=== PATIENT | female | born 1945 | race Caucasian/White ===

== ENCOUNTER 2017-10-13 13:50 | Observation (INO) | payer MEDICARE ==
--- NOTE | 2017-10-13 15:38 | RAD ---
TWO VIEWS CHEST: Date: 10-13-17 Comparison: 05-03-17 History: Left sided chest pain and cough. FINDINGS: There is a questionable small nodular density in the left lung base just lateral to the left heart liam rder. No pneumothorax or pleural fluid is seen. There is no lobar consolidation or alveolar edema. Brenna ngs are hyperinflated with increased linear interstitial density. This suggests underlying emphysemat ous change. IMPRESSION: 1. Questionable nodular density lateral to the left heart border. Recommend CT of the chest on a non- emergent basis to exclude an underlying pulmonary nodule/mass. 2. Emphysema. 3. Nurse practitioner Florentino, made aware at 3:30 p.m. 10-13-17. Code LN POS: HUGO
[2017-10-13 15:59] LABS: #Eosinphils 0.2 thou/uL (0.0-0.7); #Monocytes 0.5 thou/uL (0.11-0.59); #Neutrophils 5.2 thou/uL (1.40-6.50); %Basophils 0.6 % (0.0-1.0); %Eosinophils 2.9 % (0.0-10.0); %Monocytes 6.3 % (0.0-10.0); Hematocrit 38.6 % (36.0-47.0); Mean Platelet Volume 6.8 fL (7.4-10.4); Red Blood Cell (RBC) Count 4.03 mill/uL (4.20-5.40)
[2017-10-13 16:21] LABS: ALT (SGPT) 21 U/L (8-55); AST (SGOT) 20 U/L (5-34); Alkaline Phosphatase 132 U/L (40-150); Anion Gap 15 mmol/L (10-20); BUN (Urea Nitrogen) 18 mg/dL (9.8-20.1); Bilirubin, Total 0.3 mg/dL (0.2-1.2); CK (CPK) 58 U/L (29-168); Calc. Creatinine Clearance 0 mL/min (70-130); Calcium 9.4 mg/dL (7.8-10.44); Carbon Dioxide 26 mmol/L (23-31); Chloride 100 mmol/L (98-107); Estimated GFR-MDRD 54; Lipase 11 U/L (8-78); Protein, Total 7.7 g/dL (6.0-8.3)
[2017-10-13 16:23] LABS: Troponin I 0.031 ng/mL (< 0.028)
[2017-10-13] MEDS ORDERED: Nitroglycerin 2% Ointment 1 INCH/1 GM Packet ONE (17:39)
[2017-10-13] MEDS ORDERED: Morphine 4 MG/ML VIAL ONE (18:09)
[2017-10-13] MEDS ORDERED: Sodium Chloride 0.9% 1,000 ML IV SCH ×2 (19:40→23:00)
[2017-10-13] MEDS ORDERED: Ondansetron HCl/PF 4 MG/2 ML Vial IVP PRN (19:40)
[2017-10-13] MEDS ORDERED: Ondansetron ODT 4 MG TAB SL PRN (19:40)
[2017-10-13 19:50] LABS: Troponin I 0.032 ng/mL (< 0.028)
[2017-10-13 20:29] VITALS: BMI 27.7
[2017-10-13 22:41] LABS: Troponin I 0.024 ng/mL (< 0.028)
[2017-10-13] MEDS ORDERED: PROVENTIL INHALER 6.7 G (200 INHALATIONS) INH PRN (22:57)
[2017-10-13] MEDS ORDERED: Guaifenesin DM 100-10/5 ML UDCUP PO PRN (22:57)
[2017-10-13] MEDS ORDERED: Acetaminophen 325 MG TAB PO PRN (22:57)
[2017-10-13] MEDS ORDERED: Senokot 8.6 MG TAB PO PRN (22:57)
[2017-10-13 23:49] VITALS: TEMP 98.3
[2017-10-13] MEDS: Enoxaparin Sodium 80 MG/0.8 ML SYRINGE SC SCH (23:51)
[2017-10-14] MEDS: Fioricet 325/50/40 mg Tablet PO PRN ×3 (00:14→15:42)
[2017-10-14 04:27] LABS: #Basophils 0.1 thou/uL (0.0-0.2); #Eosinphils 0.2 thou/uL (0.0-0.7); #Lymphocytes 2.1 thou/uL (1.20-3.40); #Monocytes 0.5 thou/uL (0.11-0.59); %Basophils 0.8 % (0.0-1.0); %Eosinophils 3.4 % (0.0-10.0); %Lymphocytes 30.5 % (21.0-51.0); %Monocytes 7.4 % (0.0-10.0); Hematocrit 35.9 % (36.0-47.0); Mean Platelet Volume 6.7 fL (7.4-10.4); Red Blood Cell (RBC) Count 3.75 mill/uL (4.20-5.40); White Blood Cell (WBC) Count 6.8 thou/uL (4.8-10.8)
--- NOTE | 2017-10-14 04:27 | HP ---
REASON FOR ADMISSION: Chest pain. HISTORY OF PRESENT ILLNESS: The patient gives history of off and on left upper quadrant pain, which has been there from last 1 year. This got worse and started to extend up towards her left lower rib cage from yesterday morning. She tried taking her usual pain medications, which did not seem to work. Has some dry cough, but no expectoration. The patient took her flu shot 2 weeks back. She has been trying to get to a pain specialist for chronic pain, but has been unable to find one. She has had cardiac catheterization done 2 years back at [facility] where she was found to have had a 30% and a 10% lesion in her coronary vessels. Her troponin is 0.03 on arrival. Currently, she is chest pain free. PAST MEDICAL AND SURGICAL HISTORY: Hypertension, chronic obstructive pulmonary disease, dyslipidemia, chronic pain syndrome, fibromyalgia, hysterectomy, appendectomy. CURRENT MEDICATIONS: The patient is on a combination of pentazocine with naloxone 2 tablets three times daily, which she has been taking for the last 20 years or so. Albuterol inhaler every 6 hourly p.r.n., albuterol nebulizer every 6 hourly p.r.n., Aggrenox 1 capsule twice daily, Neurontin 600 mg 3 times daily, Prozac 80 mg p.o. at bedtime, Prinivil 10 mg twice daily, and Pravachol 40 mg p.o. daily. ALLERGIES: Allergic to CODEINE, PENICILLIN, and SULFA. NSAIDS make her get severe nausea and causes GI upset. She is also allergic to MACROLIDES. PERSONAL HISTORY: Quit smoking two years ago, prior to that has smoked for nearly 50 years, one pack a day. Does not abuse alcohol or drugs. FAMILY HISTORY: Mother at the age of 93 years. She has had history of CVA. Father of brain tumor and its complications at the age of 82 years, he has also had coronary artery disease. REVIEW OF SYSTEMS: The following complete review of systems was negative, unless otherwise mentioned in the HPI or below: Constitutional: Weight loss or gain, ability to conduct usual activities. Skin: Rash, itching. Eyes: Double vision, pain. ENT/Mouth: Nose bleeding, neck stiffness, pain, tenderness. Cardiovascular: Palpitations, dyspnea on exertion, orthopnea. Respiratory: Shortness of breath, wheezing, cough, hemoptysis, fever or night sweats. Gastrointestinal: Poor appetite, abdominal pain, heartburn, nausea, vomiting, constipation, or diarrhea. Genitourinary: Urgency, frequency, dysuria, nocturia. Musculoskeletal: Pain, swelling. Neurologic/Psychiatric: Anxiety, depression. Allergy/Immunologic: Skin rash, bleeding tendency. Otherwise negative except as stated per HPI. PHYSICAL EXAMINATION: GENERAL: The patient is a 72-year-old female who is currently not in any acute distress. VITAL SIGNS: Blood pressure 166/94 on arrival, pulse 90 per minute, respiratory rate 18 per minute, temperature 98.1 degrees Fahrenheit, saturating 94% on room air. NECK: Supple, no elevated JVD. HEENT: Eyes, extraocular muscles intact. Pupils are reacting to light. Oral cavity, mucous membranes are moist. No exudates or congestion. CARDIOVASCULAR SYSTEM: S1 and S2 heard. Regular rhythm. RESPIRATORY SYSTEM: Air entry 1+ bilateral. Scattered rhonchi plus no rales or wheezes. ABDOMEN: Soft, bowel sounds heard. No tenderness, rigidity, or guarding. EXTREMITIES: No peripheral edema or calf tenderness. VASCULAR SYSTEM: Peripheral pulses 1+ bilateral. No ischemic ulcerations or gangrene. CENTRAL NERVOUS SYSTEM: No gross focal deficits seen. Patient is alert, awake , oriented x3. PSYCHIATRIC SYSTEM: The patient's mood is euthymic. No hallucinations or delusions. LABORATORY AND X-RAY FINDINGS: EKG done shows normal sinus rhythm at 90 beats per minute. There is T inversion seen in V3, V4, V5, and V6. Troponin I is 0.03 x2. BNP 167, albumin is 3.7. Chest x-ray done shows questionable nodular density lateral to the left heart border. The CT chest has been recommended by Radiology. The signs of emphysema seen. BUN 18, creatinine 1.0. Liver enzymes within normal limits. Electrolytes are stable. White count of 8, H and H 12 and 38, platelet count 321. MCV is 95 with 65% neutrophils, BUN 18, creatinine 1.0. CLINICAL IMPRESSION AND PLAN: The patient will be under observation on telemetry for chest pain, rule out acute coronary syndrome with indeterminate troponin. She has had mild coronary artery disease on prior cardiac catheterization done 2 years ago. It is unclear if her troponin leak is due to demand ischemia from her chronic left upper quadrant pain or progressive coronary artery disease. In view of this, she will be kept n.p.o. and a Cardiology consultation with Dr. Harris who is cap and hat production supervisor, will be requested. She will be gently hydrated. We will also place her on Lovenox 70 mg subcutaneously every 12 hourly in view of indeterminate troponin along with nitroglycerin half inch every 8 hourly transdermal. She will be on a full dose aspirin, Lipitor, continue on Prozac, Neurontin, and Talwin/naloxone combination. Echo with 2D Doppler for LV function will be obtained as well. We will continue to closely monitor her for any hemodynamic compromise. Please note, I have seen and examined the patient on 10/13/2017. JORYD
[2017-10-14 04:51] LABS: Anion Gap 14 mmol/L (10-20); BUN (Urea Nitrogen) 18 mg/dL (9.8-20.1); Calc. Creatinine Clearance 58 mL/min (70-130); Calcium 9.1 mg/dL (7.8-10.44); Carbon Dioxide 28 mmol/L (23-31); Chloride 101 mmol/L (98-107); Cholesterol 204 mg/dl (< 200 Desired); Estimated GFR-MDRD 54; LDL Cholesterol, Calculated 125 mg/dL
[2017-10-14] MEDS: Nitroglycerin 2% Ointment 1 INCH/1 GM Packet TOP SCH ×2 (05:25→15:28)
[2017-10-14] MEDS ORDERED: Aspirin 325 MG TAB PO SCH (08:00)
[2017-10-14] MEDS ORDERED: Famotidine 20 MG TAB PO SCH (09:00)
[2017-10-14] MEDS ORDERED: Atorvastatin Calcium 10 MG TAB PO SCH (09:00)
[2017-10-14] MEDS ORDERED: Gabapentin 300 MG CAP PO SCH (09:00)
[2017-10-14] MEDS: Metoprolol Tartrate 25 MG TAB PO SCH ×2 (09:27→11:30)
[2017-10-14] MEDS: Pentazocine HCl/Naloxone HCl 50/0.5 MG TAB PO SCH ×2 (09:27→15:41)
[2017-10-14] MEDS: Enoxaparin Sodium 80 MG/0.8 ML SYRINGE SC SCH (11:30)
--- NOTE | 2017-10-14 11:54 | CON ---
DATE OF CONSULTATION: 10/14/2017 REASON FOR CONSULTATION: Borderline troponin. PRIMARY REFERRING PROVIDER: Dr. Diaz. HISTORY OF PRESENT ILLNESS: Ms. Garcia is a 72-year-old woman who recently presented with an upper left quadrant pain. The pain is reproducible. There is pain to palpation. 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 Gary Duggan and underwent coronary angiography one year ago. She was fou nd to have mild coronary artery disease. No chest pain or pressure noted. No other associated ameli orating or exacerbating factors present. PAST MEDICAL HISTORY: Hypertension, COPD, hyperlipidemia, fibromyalgia. PAST SURGICAL HISTORY: Hysterectomy, appendectomy. CURRENT MEDICATIONS: Include albuterol, Aggrenox, Prinivil, Prozac, Neurontin, Pravachol, albuterol. ALLERGIES: CODEINE, PENICILLIN, and SULFA. SOCIAL HISTORY: No current tobacco or alcohol use. REVIEW OF SYSTEMS: Ten-point review of systems reviewed and is as above, otherwise negative. PHYSICAL EXAMINATION: VITAL SIGNS: 159/80, pulse 90, respirations 20. GENERAL: Patient is a pleasant female who is in no acute distress. The patient appears her stated a ge. NEUROLOGIC: The patient is alert and oriented times 3 with no focal neurologic deficits. HEENT: Sclerae without icterus. Mouth has moist mucous membranes with normal pallor. NECK: No JVD. Carotid upstroke brisk. No bruits bilaterally. LUNGS: Clear to auscultation with unlabored respirations. BACK: No scoliosis or kyphosis. CARDIAC: Regular rate and rhythm with normal S1 and S2. No S3 or S4 noted. No significant rubs, mu rmurs, thrills, or gallops noted throughout the precordium. PMI is not displaced. There is no bessie ternal heave. ABDOMEN: Pain to palpation noted in the left upper quadrant. EXTREMITIES: 2+ femoral and 2+ dorsalis pedis pulses. No cyanosis, clubbing, or edema. SKIN: No gross abnormalities. PERTINENT LABORATORY DATA: Hemoglobin 11.7. Peak troponin 0.032, which is felt to be within lower l imits in the indeterminate range. BNP of 167. IMPRESSION: 1. Abdominal pain. 2. Mild coronary artery disease. RECOMMENDATIONS: Ms. Garcia does have reproducible pain noted to the left upper quadrant. Etiology is unknown. Workup in progress per hospitalist. From a CV standpoint, given that she had a mild co ronary artery disease with angio performed within the last year, would not be compelled to proceed wi th any further cardiac recommendations. Otherwise, from my standpoint, we will sign off. Please re- consult if needed.
[2017-10-14 15:25] VITALS: BP 158/79
--- NOTE | 2017-10-14 15:28 | CT ---
CT THORAX WITH IV CONTRAST: Date: 10/14/17 HISTORY: Left lung nodule. Abnormal chest x-ray. COMPARISON: Chest x-ray on 10/13/17. FINDINGS: There is a tiny, 5.0 mm, pulmonary nodule seen in the anterior aspect of the right upper lobe with qu estionable faint less than 4.0 mm pulmonary nodule within the right middle lobe as well. An 8.0 mm noncalcified pleural based pulmonary nodule is seen at the medial right lung base, as well as a pleural based pulmonary nodule superior segment of right lower lobe which measures 7.0 mm. There is also an additional tiny pulmonary nodule measuring less than 5.0 mm within the superior segment o f the right lower lobe near the region of the fissure. There is a linear and slight nodular density seen in the region of the lingula, which is adjacent to the left cardiac border, but this more of an appearance of an area of mild scarring as well as pleura l thickening, and no discrete pulmonary nodule is seen in this region. This does correspond to the ch est x-ray abnormality. There is a tiny pleural based nodular density right lung base measuring approximately 6.0 mm. No master tional pulmonary nodule is seen on the left. Vascular calcification seen in the thoracic aorta and involving the coronary arteries. There is no evidence of lymphadenopathy. There is a fat density mass-like structure measuring 2.7 cm between the right atrial appendage and th e left atrium likely related to a small lipoma. Subcentimeter, too small to characterize, hypodense lesions seen in the superior pole of left kidney and there is mild cortical scarring involving the superior pole of the left kidney. IMPRESSION: 1. Scattered pulmonary nodules within the right upper lobe and right lower lobe with largest pulmona ry nodules in the right lower lobe. Follow-up CT thorax in 4 months is recommended. 2. Findings most likely related to area of mild pleural and parenchymal scarring in the lingula whic h correlates with finding on chest x-ray. POS: HUGO
--- NOTE | 2017-10-14 16:21 | DIS ---
PRIMARY CARE PHYSICIAN: Listed as Dr. Vega. DATE OF ADMISSION: 10/13/2017 DATE OF DISCHARGE: 10/14/2017 DISCHARGE DIAGNOSES: 1. Noncardiac chest pain. 2. Chronic headaches. 3. Hypertension, essential. 4. Chronic pain syndrome. 5. Hyperlipidemia. 6. Chronic obstructive pulmonary disease. 7. Fibromyalgia. CONSULTATIONS: Cardiology, Dr. Armani Harris. PROCEDURES: 1. Echocardiogram 10/13/2017 that showed ejection fraction of 60%, no regional wall motion abnormali ties, mild MR, mildly thickened trileaflet aortic valve with decreased excursion and mild TR. 2. A CT scan of the chest that showed several small subcentimeter pleural based nodules consistent w ith scarring and recommended a 4-month followup. HOSPITAL COURSE: Ms. Garcia is a 72-year-old white female with the above problems who presented in the emergency department on 10/13/2017 for evaluation of pain in her chest. She states she has been having chest pain off and on for the last year, got worse and seemed to extend towards her low ribcag e two days ago. Took an oral pain medicine did not work. She has had a chronic dry cough without sp utum production. She presented to the emergency department for evaluation, initial workup showed a t roponin is a 0.031 and we were called for admission. The patient was seen and examined, and placed in observation by Dr. Rubio. Serial cardiac biomarkers were obtained that showed her troponin to go from 0.031 to 0.032 to 0.024. Her chest pain is completely resolved. She was seen by Cardiology and echocardiogram was obtained. Echocardiogram was largely unremarkable, Cardiology felt this was not related to her heart and recom mended follow up with her regular entry level java developer. Her heart cath 1-2 years ago showed minimal coronary artery disease. A chest x-ray on admission did show a nodule present along the left heart border, so CT scan of the c hest was obtained to make sure this was the cause of her discomfort. CT scan showed several subcenti meter nodules present in the right middle and right upper lung. She also had a pleural based nodule present in the left lingular area that would likely represented, but we will see on the chest x-ray. Radiology recommended a 4-month followup. PHYSICAL EXAMINATION: The patient was seen and examined on the day of discharge. Discharge plan and disposition were discussed with the patient face to face at the bedside in the presence of her child sherwin. DISCHARGE MEDICATIONS: Resuming home medications without changes. FOLLOWUP APPOINTMENTS: 1. Primary care physician within a week. 2. Mobility Scooter Repairer, the next available. The patient was instructed to stop smoking. She was instructed to follow heart healthy diet and acti vity per cardiopulmonary limitations. She is to return to the emergency department or call her [facility] doctor if she has any further issues.
[2017-10-14] MEDS ORDERED: ISOVUE-370 76%-LOCM 1 ML ONE (16:46)
[2017-10-14] MEDS ORDERED: FLUoxetine HCl 20 MG CAP PO SCH (21:00)
== END 2017-10-14 16:06 | disposition home or self-care (01) ==
LOC: ERS 13:50 → 2SW 18:48
PROVIDERS: ADMIT Internal Medicine; ATTEND Internal Medicine
DX: R07.89 Other chest pain (principal); R51 Headache; I10 Essential (primary) hypertension; G89.29 Other chronic pain; E78.5 Hyperlipidemia, unspecified; M79.7 Fibromyalgia; J44.9 Chronic obstructive pulmonary disease, unspecified; Z88.5 Allergy status to narcotic agent; Z88.0 Allergy status to penicillin; Z88.2 Allergy status to sulfonamides; Z88.6 Allergy status to analgesic agent; Z88.8 Allergy status to other drugs, medicaments and biological substances; Z79.899 Other long term (current) drug therapy; Z87.891 Personal history of nicotine dependence; Z82.49 Family history of ischemic heart disease and other diseases of the circulatory system
CPT/HCPCS: 71020; 71260; 80048; 80053; 80061; 82550; 82553; 83690; 83880; 84484 ×2; 85025 ×2; 93005; 93306; 94760; 96361; 96372 ×2; 96374; 97139; 99285; 99406; G0378; 36415; J1650; J2270

== ENCOUNTER 2018-02-10 08:11 | Observation (INO) | payer MEDICARE ==
[2018-02-10 08:42] LABS: #Lymphocytes 1.4 thou/uL (1.20-3.40); #Monocytes 0.5 thou/uL (0.11-0.59); #Neutrophils 8.6 thou/uL (1.40-6.50); %Basophils 0.3 % (0.0-1.0); %Eosinophils 0.2 % (0.0-10.0); %Lymphocytes 13.3 % (21.0-51.0); %Monocytes 4.8 % (0.0-10.0); %Neutrophils 81.5 % (42.0-75.0); Hemoglobin 15.4 g/dL (12.0-16.0); Mean Corpuscular HGB CONC 33.9 g/dL (32.0-36.0); Mean Corpuscular Hemoglobin 31.8 pg (27.0-31.0); Mean Platelet Volume 7.2 fL (7.4-10.4); Platelet Count 289 thou/uL (130-400); Red Blood Cell (RBC) Count 4.84 mill/uL (4.20-5.40); White Blood Cell (WBC) Count 10.5 thou/uL (4.8-10.8)
[2018-02-10 09:06] LABS: ALT (SGPT) 12 U/L (8-55); AST (SGOT) 17 U/L (5-34); Albumin 4.8 g/dL (3.4-4.8); Alkaline Phosphatase 135 U/L (40-150); Anion Gap 17 mmol/L (10-20); BUN (Urea Nitrogen) 19 mg/dL (9.8-20.1); Bilirubin, Total 0.4 mg/dL (0.2-1.2); Calc. Creatinine Clearance 0 mL/min (70-130); Calcium 10.2 mg/dL (7.8-10.44); Carbon Dioxide 26 mmol/L (23-31); Chloride 94 mmol/L (98-107); Estimated GFR-MDRD 54; Globulin 4.1 g/dL (2.4-3.5); Glucose 125 mg/dL (80-115); Lipase 31 U/L (8-78); Potassium 3.3 mmol/L (3.5-5.1); Protein, Total 8.9 g/dL (6.0-8.3); Sodium 134 mmol/L (136-145)
[2018-02-10 09:53] LABS: CKMB 1.8 ng/mL (0-6.6); Troponin I 0.041 ng/mL (< 0.028)
[2018-02-10] MEDS ORDERED: Ondansetron HCl/PF 4 MG/2 ML Vial ONE (10:09)
[2018-02-10] MEDS ORDERED: hydrALAZINE 20 MG/ML VIAL ONE (10:26)
[2018-02-10] MEDS ORDERED: Bacitracin Zinc 1 Packet ONE (10:28)
[2018-02-10] MEDS ORDERED: cloNIDine 0.1 MG TAB ONE (11:30)
[2018-02-10] MEDS ORDERED: Promethazine HCl 25 MG/ML VIAL ONE (11:43)
[2018-02-10 12:22] LABS: CKMB 1.8 ng/mL (0-6.6); Troponin I 0.047 ng/mL (< 0.028)
[2018-02-10] MEDS ORDERED: Metoprolol Tartrate 5 MG/5 ML VIAL ONE (12:37)
[2018-02-10] MEDS ORDERED: Bisacodyl 5 MG TAB PO PRN (14:10)
[2018-02-10] MEDS ORDERED: Acetaminophen 325 MG TAB PO PRN (14:10)
[2018-02-10] MEDS ORDERED: Ondansetron HCl/PF 4 MG/2 ML Vial IVP PRN (14:10)
[2018-02-10] MEDS ORDERED: Acetaminophen 650 MG Suppository PR PRN (14:10)
[2018-02-10] MEDS ORDERED: Potassium Chloride 20 MEQ TAB PO SCH (14:15)
--- NOTE | 2018-02-10 15:00 | HP ---
PRIMARY CARE PHYSICIAN: Prakash Ken M.D. CHIEF COMPLAINT: Nausea and vomiting. HISTORY OF PRESENT ILLNESS: Ms. Garcia is a pleasant 72-year-old lady who was seen at [facility] on 02/10/2018. She reports that she developed nausea and vomiting yesterday morning. She reports vomiting 6 times y esterday. She denies any chest pain. She denies any diarrhea. She denies any abdominal pain. She reports having a headache, reports that it is similar to her migraine headache. She denies eating ou tside her house. According to her son, chicken that she may have eaten 2 days ago may have been unde rcooked. However, she denies this and reports that the chicken was well cooked. She lives with her son. She took some Phenergan, but without relief. She therefore came to the emergency room. REVIEW OF SYSTEMS: The following complete review of systems was negative, unless otherwise mentioned in the HPI or below: Constitutional: Weight loss or gain, ability to conduct usual activities. Skin: Rash, itching. Eyes: Double vision, pain. ENT/Mouth: Nose bleeding, neck stiffness, pain, tenderness. Cardiovascular: Palpitations, dyspnea on exertion, orthopnea. Respiratory: Shortness of breath, wheezing, cough, hemoptysis, fever or night sweats. Gastrointestinal: Poor appetite, abdominal pain, heartburn, nausea, vomiting, constipation, or diarr hea. Genitourinary: Urgency, frequency, dysuria, nocturia. Musculoskeletal: Pain, swelling. Neurologic/Psychiatric: Anxiety, depression. Allergy/Immunologic: Skin rash, bleeding tendency. PAST MEDICAL HISTORY: Significant for hypertension, chronic obstructive pulmonary disease, dyslipide umu, chronic pain syndrome and fibromyalgia. PAST SURGICAL HISTORY: Hysterectomy and appendectomy. PSYCHIATRIC HISTORY: Depression and anxiety. SOCIAL HISTORY: Patient smokes electronic cigarettes. She denies alcohol use or recreational drug u se. FAMILY HISTORY: Significant for cerebrovascular accident in her mother and coronary artery disease a nd brain tumor in her father. ALLERGIES: CODEINE, PENICILLIN, SULFA, NONSTEROIDAL ANTI-INFLAMMATORY DRUGS and MACROLIDES. CURRENT MEDICATIONS: Talwin NX 50/0.5 mg every 6 hours, gabapentin 600 mg 3 times a day, meclizine 2 5 mg as needed, pravastatin 40 mg daily, Compazine 10 mg every 6 hours as needed, lisinopril 10 mg 2 times a day, Aggrenox 1 capsule daily, Besivance eye drops. CODE STATUS: I discussed her code status. She is FULL CODE. She reports that her children will be her decision makers. PHYSICAL EXAMINATION: GENERAL: On examination, Ms. Garcia is awake and alert, not in acute distress. VITAL SIGNS: Blood pressure is 143/85, pulse is 86, she is breathing at rate of 16, and saturating 9 8% on room air. She is afebrile. She had blood pressure of 209/113 earlier in the emergency room. EYES: No scleral icterus. No conjunctival pallor. ENT: Dry mucosal membranes, no oropharyngeal erythema or exudates. NECK: Supple, nontender, normal range of movement. Trachea is midline. RESPIRATORY: Accessory muscles of breathing are not active. Chest wall movements are symmetric bila terally. LUNGS: Clear to auscultation without wheeze, rhonchi or crepitations. CARDIOVASCULAR: S1 and S2 are heard, regular. LUNGS: Peripheral pulses palpable. No carotid bruit, no pericardial rub. ABDOMEN: Soft and nontender, bowel sounds are heard, no hepatomegaly, no splenomegaly. NEUROLOGIC: Cranial nerves II-XII intact. Deep tendon reflexes are 2+. MUSCULOSKELETAL: Power is 5/5 in all 4 extremities. SKIN: No rashes or subcutaneous nodules. LYMPHATIC: No cervical lymphadenopathy. PSYCHIATRIC: Normal mood, normal affect. The patient is oriented to person, place, and time. IMAGING DATA AND LABORATORY DATA: Ms. Garcia's labs and investigations were reviewed. She had an e lectrocardiogram, which showed normal sinus rhythm. She had a prolonged corrected QT interval of 505 milliseconds. She has not had any imaging yet. She has normal white count, normal hemoglobin, norm al platelet count, decreased sodium of 134, decreased potassium of 3.3, normal creatinine and indeter minate troponin I of 0.047. Liver function tests are unremarkable. Creatinine is normal. ASSESSMENT AND PLAN: Ms. Garcia is a pleasant 72-year-old lady who was seen at [facility] on 02/10/2018. Her problem list includes: 1. Nausea and vomiting: This appears to have improved. She will be admitted to the hospital on obs ervation status for further management including antiemetics. We will start her on clear fluid diet and advance as tolerated. 2. Indeterminate troponin I: Etiology is unclear. Patient was admitted at this hospital in 10/2017 for chest pain. At that time, the plan was for patient to follow up with her injector assembler as outpat ient, since she had a coronary angiography in 2016. She reports that she has followed up and no furt her interventions were needed. We will trend her troponins. If stable, she will be advised to follo w up with her injector assembler. We will keep patient n.p.o. after midnight in case she needs stress test during this hospitalization. 3. Hyponatremia: Mild follow electrolytes. 4. Hypokalemia: Replace. 5. Dehydration: The patient is clinically dehydrated. We will provide intravenous fluids. 6. Hypertensive urgency: Monitor vital signs, titrate antihypertensives as needed, add p.r.n. antih ypertensives. 7. Chronic pain: Resume home medications. Many thanks for allowing me to participate in your patient's care. Please feel free to contact me wi th any questions or concerns. LEVEL OF RISK: Moderate. LEVEL OF COMPLEXITY: Moderate.
[2018-02-10 15:30] VITALS: BMI 25.3
[2018-02-10] MEDS: Sodium Chloride 0.9% 1,000 ML IV SCH (15:46)
[2018-02-10] MEDS ORDERED: Gabapentin 300 MG CAP PO PRN (16:51)
[2018-02-10] MEDS ORDERED: PROVENTIL INHALER 6.7 G (200 INHALATIONS) INH PRN (16:51)
[2018-02-10] MEDS ORDERED: Albuterol Sulfate 2.5 mg/3 ml Neb NEB PRN (16:51)
[2018-02-10] MEDS ORDERED: Fiorinal 325/50/40 mg Tablet PO PRN (17:01)
[2018-02-10] MEDS ORDERED: Prochlorperazine Maleate 5 MG TAB PO PRN (17:05)
[2018-02-10 18:12] LABS: Troponin I 0.031 ng/mL (< 0.028)
--- NOTE | 2018-02-10 19:08 | RAD ---
RADIOGRAPH CHEST 2 VIEWS: 02/10/18 HISTORY: 72-year-old female for followup of infiltrate. FINDINGS: The thoracic aorta is tortuous and ectatic. There is no evidence of air space density, pneumothorax, or pulmonary edema. There is no cardiomegaly or pleural effusion. There is a small triangular densi ty in the lingula, silhouetting a small portion of the cardiac apex, which represents pulmonary scar, as demonstrated on the CT of 10/14/17, and is unchanged since 10/13/17 plain radiograph. IMPRESSION: 1) No acute cardiopulmonary findings. 2) Ectasia of thoracic aorta. bib [] POS: HUGO
[2018-02-10] MEDS: Meclizine HCl 25 MG TAB PO SCH (20:27)
[2018-02-10] MEDS: valACYclovir 500 MG TAB PO SCH (20:27)
[2018-02-10] MEDS: Dicyclomine 10 MG CAP PO SCH (20:27)
[2018-02-10] MEDS: Pentazocine HCl/Naloxone HCl 50/0.5 MG TAB PO SCH (20:27)
[2018-02-10] MEDS ORDERED: Pravastatin Sodium 40 MG TAB PO SCH (21:00)
[2018-02-10 21:34] LABS: CKMB 2.1 ng/mL (0-6.6); Troponin I 0.019 ng/mL (< 0.028)
[2018-02-11 04:34] LABS: #Eosinphils 0.1 thou/uL (0.0-0.7); #Lymphocytes 2.2 thou/uL (1.20-3.40); #Monocytes 0.5 thou/uL (0.11-0.59); #Neutrophils 5.1 thou/uL (1.40-6.50); %Basophils 0.2 % (0.0-1.0); %Eosinophils 0.7 % (0.0-10.0); %Lymphocytes 28.1 % (21.0-51.0); %Monocytes 5.9 % (0.0-10.0); %Neutrophils 65.1 % (42.0-75.0); Hemoglobin 12.1 g/dL (12.0-16.0); Mean Corpuscular HGB CONC 33.7 g/dL (32.0-36.0); Mean Corpuscular Hemoglobin 32.1 pg (27.0-31.0); Mean Corpuscular Volume 95.3 fl (81.0-99.0); Mean Platelet Volume 7.1 fL (7.4-10.4); Platelet Count 227 thou/uL (130-400); Red Blood Cell (RBC) Count 3.78 mill/uL (4.20-5.40); White Blood Cell (WBC) Count 7.9 thou/uL (4.8-10.8)
[2018-02-11 04:37] LABS: Anion Gap 12 mmol/L (10-20); BUN (Urea Nitrogen) 16 mg/dL (9.8-20.1); Calc. Creatinine Clearance 61 mL/min (70-130); Calcium 8.7 mg/dL (7.8-10.44); Carbon Dioxide 25 mmol/L (23-31); Chloride 103 mmol/L (98-107); Estimated GFR-MDRD 61; Glucose 99 mg/dL (80-115); Potassium 3.7 mmol/L (3.5-5.1); Sodium 136 mmol/L (136-145)
[2018-02-11] MEDS: Sodium Chloride 0.9% 1,000 ML IV SCH (05:40)
[2018-02-11 07:17] VITALS: BP 143/78; TEMP 98.4
[2018-02-11] MEDS ORDERED: Enoxaparin Sodium 40 MG/0.4 ML SYRINGE SC SCH (09:00)
[2018-02-11] MEDS ORDERED: Lisinopril 10 MG TAB PO SCH (09:00)
[2018-02-11] MEDS ORDERED: FLUoxetine HCl 20 MG CAP PO SCH (09:00)
[2018-02-11] MEDS ORDERED: Aggrenox 200-25mg CAP PO SCH (09:00)
[2018-02-11] MEDS ORDERED: Clopidogrel Bisulfate 75 MG TAB PO SCH (09:00)
[2018-02-11] MEDS: valACYclovir 500 MG TAB PO SCH (09:18)
[2018-02-11] MEDS: Meclizine HCl 25 MG TAB PO SCH (09:18)
[2018-02-11] MEDS: Dicyclomine 10 MG CAP PO SCH (09:19)
[2018-02-11] MEDS: Pentazocine HCl/Naloxone HCl 50/0.5 MG TAB PO SCH (09:20)
--- NOTE | 2018-02-11 13:11 | DIS ---
DATE OF ADMISSION: 02/10/2018 DATE OF DISCHARGE: 02/11/2018 PRIMARY CARE PHYSICIAN: Prakash Ken M.D. DISCHARGE DIAGNOSES: 1. Nausea and vomiting. 2. Mildly elevated troponin I. CONDITION OF PATIENT AT THE TIME OF DISCHARGE: Stable. I assessed Ms. Garcia on the day of dischar . She denies any chest pain or shortness of breath. She denies any nausea or vomiting. She is to lerating diet well. Vital signs are stable. S1 and S2 are heard, regular. Lungs are clear to auscu ltation bilaterally. DISCHARGE MEDICATIONS: No change was made to her preadmission home medications as dictated on histor y and physical note from 02/10/2018. HOSPITAL COURSE: Ms. Garcia is a pleasant 72-year-old lady who was admitted to [facility] on observation status on 02/10/2018 for nausea and vomiting as well as indeterminate tr oponin I level. She received intravenous fluids. She clinically improved. Her troponin level trend ed down into the normal range. She never had any chest pain during this hospitalization. She is adv ised to follow up with her template cutter as an outpatient. Her nausea and vomiting resolved as well. She was tolerating diet on the day of discharge. On the day of discharge, she has a white count of 7900, hemoglobin 12.1, platelet count 227,000 and a normal Chem-7. Many thanks for allowing me to participate in your patient's care. Please feel free to contact me wi th any questions or concerns. DISCHARGE DESTINATION: Home.
== END 2018-02-11 11:10 | disposition home or self-care (01) ==
LOC: ERS 08:11 → 2SW 13:30
PROVIDERS: ADMIT Internal Medicine; ATTEND Internal Medicine
DX: R11.2 Nausea with vomiting, unspecified (principal); R79.89 Other specified abnormal findings of blood chemistry; G89.4 Chronic pain syndrome; M79.7 Fibromyalgia; I10 Essential (primary) hypertension; J44.9 Chronic obstructive pulmonary disease, unspecified; E78.5 Hyperlipidemia, unspecified; F41.9 Anxiety disorder, unspecified; F32.9 Major depressive disorder, single episode, unspecified; F17.290 Nicotine dependence, other tobacco product, uncomplicated; E86.0 Dehydration; E87.6 Hypokalemia; E87.1 Hypo-osmolality and hyponatremia; I16.0 Hypertensive urgency; Z88.0 Allergy status to penicillin; Z88.5 Allergy status to narcotic agent; Z88.2 Allergy status to sulfonamides; Z88.6 Allergy status to analgesic agent; Z88.8 Allergy status to other drugs, medicaments and biological substances; Z79.02 Long term (current) use of antithrombotics/antiplatelets; Z79.899 Other long term (current) drug therapy
CPT/HCPCS: 71046; 80048; 80053; 82553 ×2; 83690; 84484 ×2; 85025 ×2; 93005; 94640 ×3; 96361 ×3; 96365; 96375; 99285; G0378; 36415; J0360; J1650; J2405; J2550; J7620

== ENCOUNTER 2018-03-13 23:22 | Inpatient (IN) | payer MEDICARE ==
[2018-03-14 00:09] LABS: #Basophils 0.1 thou/uL (0.0-0.2); #Eosinphils 0.2 thou/uL (0.0-0.7); #Lymphocytes 2.5 thou/uL (1.20-3.40); #Monocytes 0.7 thou/uL (0.11-0.59); %Basophils 0.8 % (0.0-1.0); %Eosinophils 2.1 % (0.0-10.0); %Lymphocytes 29.8 % (21.0-51.0); %Monocytes 7.8 % (0.0-10.0); %Neutrophils 59.5 % (42.0-75.0); Mean Corpuscular HGB CONC 33.5 g/dL (32.0-36.0); Mean Corpuscular Hemoglobin 32.3 pg (27.0-31.0); Mean Corpuscular Volume 96.3 fl (81.0-99.0); Mean Platelet Volume 7.2 fL (7.4-10.4); Platelet Count 312 thou/uL (130-400); RBC Distribution Width 12.9 % (11.5-14.5); Red Blood Cell (RBC) Count 3.71 mill/uL (4.20-5.40); White Blood Cell (WBC) Count 8.5 thou/uL (4.8-10.8)
[2018-03-14] MEDS ORDERED: Lidocaine 1% w/Epinephrine 1:100K 20 ML VIAL ONE (00:14)
[2018-03-14 00:20] LABS: INR-International Normal Ratio 0.9; Prothrombin Time 12.6 SEC (12.0-14.7)
[2018-03-14 00:22] LABS: ALT (SGPT) 17 U/L (8-55); AST (SGOT) 17 U/L (5-34); Albumin 4.2 g/dL (3.4-4.8); Alkaline Phosphatase 125 U/L (40-150); Anion Gap 16 mmol/L (10-20); BUN (Urea Nitrogen) 30 mg/dL (9.8-20.1); Bilirubin, Total Less than 0.2 mg/dL (0.2-1.2); Calc. Creatinine Clearance 0 mL/min (70-130); Calcium 9.4 mg/dL (7.8-10.44); Carbon Dioxide 25 mmol/L (23-31); Chloride 102 mmol/L (98-107); Estimated GFR-MDRD 34; Globulin 3.2 g/dL (2.4-3.5); Glucose 103 mg/dL (80-115); Magnesium 1.9 mg/dL (1.6-2.6); Potassium 3.6 mmol/L (3.5-5.1); Protein, Total 7.4 g/dL (6.0-8.3); Sodium 139 mmol/L (136-145)
[2018-03-14 00:26] LABS: CKMB 5.7 ng/mL (0-6.6); Troponin I Less than 0.010 ng/mL (< 0.028)
[2018-03-14] MEDS ORDERED: Diazepam 5 MG TAB ONE (01:37)
[2018-03-14] MEDS ORDERED: Fentanyl 100 MCG/2 ML VIAL ONE (02:33)
--- NOTE | 2018-03-14 02:47 | HP ---
DATE OF ADMISSION: 03/14/2018 PRIMARY CARE PHYSICIAN: Prakash Ken MD CHIEF COMPLAINT: Fall and dizziness. HISTORY OF PRESENT ILLNESS: This is a 72-year-old female who presents to [facility] department with apparent 3-day history of increasing weakness with a fall at home, striking her h ead on a coffee table. The patient states she was attempting to navigate to sit on her couch when sh e misjudged the distance falling, striking the right side behind her ear. The patient denied any spe cific loss of consciousness, but admitted to pain behind the ear with bleeding. The patient apparent ly has been treated in the past with meclizine for dizziness intermittently, but states she has notic ed increasing dizziness and difficulty with walking in the last 72 hours. The patient does admit to having a walker at home, but does not use this on a regular basis. The patient admits to falling 2 t imes in the last week at home, but did not seek medical attention. The patient states her family mem bers found her on the floor and notified EMS. The patient denies any specific change to her chronic medication regimen, but does state a history of prior CVA on chronic Aggrenox therapy. In the emerge ncy room, patient underwent CT imaging of the brain showing no acute intracranial process. Exam find ings showed an ataxic gait with nystagmus including horizontal and vertical assessment. The patient received Valium 5 mg x1 dose in addition to aspirin 81 mg and intravenous normal saline 500 mL. PAST MEDICAL HISTORY: 1. Hypertension, labile. 2. Chronic obstructive pulmonary disease. 3. Dyslipidemia. 4. Chronic pain syndrome. 5. Fibromyalgia. 6. History of CVA with chronic Aggrenox. 7. History of migraine headaches. 8. History of multiple falls. PAST SURGICAL HISTORY: 1. Status post hysterectomy. 2. Status post appendectomy. PSYCHIATRIC HISTORY: History of depression and anxiety. CURRENT MEDICATIONS: Based on recent admission on 02/10/2018; 1. Talwin NX 50/0.5 mg p.o. q.6 hours p.r.n. 2. Gabapentin 600 mg p.o. t.i.d. 3. Meclizine 25 mg as needed for dizziness. 4. Pravachol 40 mg p.o. daily. 5. Compazine 10 mg p.o. q.6 hours p.r.n. 6. Lisinopril 10 mg p.o. b.i.d. 7. Aggrenox 1 capsule p.o. daily. 8. Besivance eye drops. ALLERGIES: CODEINE, PENICILLIN, ERYTHROMYCIN, and SULFA. FAMILY HISTORY: Positive for CVA in her mother and coronary artery disease and brain tumor in her fa ther. SOCIAL HISTORY: The patient resides in the [facility] area. Lives with her son and grand son. Smokes electronic cigarettes. No alcohol or illicit drug use. Recent falls x3 in the last wee k. REVIEW OF SYSTEMS: The following complete review of systems was negative, unless otherwise mentioned in the HPI or below: Constitutional: Weight loss or gain, ability to conduct usual activities. Sk in: Rash, itching. Eyes: Double vision, pain. ENT/Mouth: Nose bleeding, neck stiffness, pain, te nderness. Cardiovascular: Palpitations, dyspnea on exertion, orthopnea. Respiratory: Shortness of breath, wheezing, cough, hemoptysis, fever or night sweats. Gastrointestinal: Poor appetite, abdom inal pain, heartburn, nausea, vomiting, constipation, or diarrhea. Genitourinary: Urgency, frequenc y, dysuria, nocturia. Musculoskeletal: Pain, swelling. Neurologic/Psychiatric: Anxiety, depressio n. Allergy/Immunologic: Skin rash, bleeding tendency. PHYSICAL EXAMINATION: VITAL SIGNS: On admission, blood pressure 205/111, pulse 92, respiratory rate 20, temperature 98.3 d egrees Fahrenheit, O2 saturation 95% on 3 liters per minute by nasal cannula. GENERAL APPEARANCE: This is a 72-year-old female, alert and oriented x3, pleasant, in no a cute distress. HEENT: Pupils are equal, round, and reactive to light and accommodation. Extraocular muscles are in tact. Vertical and horizontal nystagmus appreciated. No fatigability noted. No scleral icterus, no conjunctival injection. Nares patent. OP is clear. Teeth in fair repair. Oral mucosa dry appeari ng. Scalp: A 1-cm laceration in the posterior auricular region over the mastoid process. NECK: Supple. No cervical adenopathy, no thyromegaly, no carotid bruits, no JVD appreciated. Cervi philipp spine with full active and passive range of motion. No meningeal signs appreciated. CHEST: Diminished breath sounds with occasional expiratory wheezing. No rhonchi or crackles. CARDIOVASCULAR: S1, S2, without noted murmur, rub, or gallop. Distant heart sounds noted. ABDOMEN: Rounded, soft, nontender, nondistended. Bowel sounds are positive in all four quadrants. There is no hepatosplenomegaly, no abdominal bruits, no rebound or guarding appreciated. EXTREMITIES: Warm and dry with fair turgor. No clubbing, cyanosis, or asymmetric edema appreciated. Pulses palpable distally at the dorsalis pedis, posterior tibial, and popliteal arteries bilaterall y. Capillary refill less than 2 seconds. NEUROLOGIC: Guy coma scale 15. Mild dysarthria noted during interviewing. Horizontal and verti philipp nystagmus noted. Right lower extremity and bilateral upper extremity ataxia. Cranial nerves II through XII are grossly intact otherwise. PERTINENT LABORATORY AND X-RAY FINDINGS: Sodium 139, potassium 3.6, chloride 102, CO2 of 25, BUN 30, creatinine 1.53 with estimated GFR of 34, glucose 103, calcium 9.4, magnesium 1.9. LFTs within norm al limits. Troponin I negative x1. BNP 44. Albumin 4.2. TSH 3.7. CBC within normal limits. PT 1 2.6, INR 0.9, PTT 31.2. CT of the brain without contrast dated 03/13/2018 showed no acute intracrani al process. EKG dated 03/14/2018, shows sinus mechanism with heart rates in the 90s. Normal R-wave progression noted in the precordial leads. Normal axis. No acute ST-T wave changes appreciated. ASSESSMENT AND PLAN: 1. Ataxia. 2. Acute on questionable subacute ataxia. The patient will be admitted to the stroke unit. Bing beyle vertebral basilar insufficiency. We will obtain MRI imaging of the brain to further delineate neuroanatomy. Continue Aggrenox b.i.d. Continue general stroke protocol. Check carotid ultrasound for focal stenosis. Consult Neurology Service in the a.m. 3. Acute kidney injury. We will continue intravenous normal saline at 75 mL per hour. Avoid nephro toxic agents and contrast media. Repeat creatinine in the a.m. 4. Mechanical fall with closed head injury. Status post primary repair of scalp laceration in the e mergency department. Obtain PT evaluation in the a.m. for functional assessment. General fall risk precautions. 5. Hypertensive urgency. We will continue home blood pressure regimen and monitor clinical response . Hydralazine and clonidine p.r.n. systolic greater than 170. 6. Hyperlipidemia. Check fasting lipid profile in the a.m. Continue Lipitor 40 mg p.o. at bedtime. 7. Prophylaxis. Sequential compression devices while in bed. Pepcid 20 mg p.o. b.i.d. PT, OT eval uation in the a.m. 8. Code status is FULL. Surrogate medical decision maker is patient's son.
[2018-03-14] MEDS ORDERED: Labetalol 100 MG/20 ML MDV SLOW IVP PRN (03:21)
[2018-03-14] MEDS ORDERED: Sodium Chloride 0.45% 1,000 ML IV SCH (03:30)
[2018-03-14 05:16] VITALS: BMI 25.0
--- NOTE | 2018-03-14 07:43 | RAD ---
CHEST 1 VIEW: Date: 03/13/18 HISTORY: Fall. Laceration to head. COMPARISON: Chest radiograph from 2016. FINDINGS: Nodular density in the left lung base is similar. No focal air space consolidation, pneumothorax, or effusion. The previously described right lower lobe and other scattered pulmonary nodules are not wel l seen on this examination. IMPRESSION: Similar examination of the chest. No acute intrathoracic abnormality. POS: [facility]
[2018-03-14] MEDS ORDERED: hydrALAZINE 20 MG/ML VIAL SLOW IVP PRN ×2 (08:08→12:09)
[2018-03-14] MEDS ORDERED: Sodium Chloride 0.9% 1,000 ML IV SCH (08:08)
[2018-03-14] MEDS ORDERED: Ondansetron HCl/PF 4 MG/2 ML Vial IVP PRN (08:08)
[2018-03-14] MEDS ORDERED: Albuterol Sulfate 2.5 mg/3 ml Neb NEB PRN (08:08)
[2018-03-14] MEDS ORDERED: Ondansetron ODT 4 MG TAB PO PRN (08:08)
[2018-03-14] MEDS ORDERED: PROVENTIL INHALER 6.7 G (200 INHALATIONS) INH PRN (08:30)
--- NOTE | 2018-03-14 08:31 | CT ---
PRELIMINARY REPORT/[facility]/EMERGENTY AFTER-HOURS PROCEDURE CT Head Without Intravenous Contrast CLINICAL HISTORY: 72 years old, female; Injury or trauma; Fall; Initial encounter; Abrasion; Head, generalized; Patient HX: Fall apx 30 min ago. Laceration to head. TECHNIQUE: Axial computed tomography images of the head/brain without intravenous contrast. COMPARISON: No relevant prior studies available. FINDINGS: Brain: Mild volume loss No hemorrhage. Moderate white matter disease. No edema. Ventricles: Unremarkable. No ventriculomegaly. Bones/joints: Unremarkable. No acute fracture. Soft tissues: Unremarkable. Sinuses: Unremarkable as visualized. No acute sinusitis. Mastoid air cells: Unremarkable as visualized. No mastoid effusion. IMPRESSION: No intracranial hemorrhage. Please see discussion above. Thank you for allowing us to participate in the care of your patient. Dictated and Authenticated by: Christiano Alexander MD 03/14/2018 12:26 AM Central Time ([place] & [place]) FINAL REPORT CT BRAIN: HISTORY: Altered mental status. FINDINGS: Final report. Preliminary exam was performed by [facility]. Noncontrast-enhanced CT images of the brain were obtained. No evidence of acute intracranial masses, hemorrhages, strokes, or contusions seen. Ventricles are o f normal size. IMPRESSION: Normal CT brain. POS: [facility]
[2018-03-14] MEDS ORDERED: Meclizine HCl 25 MG TAB PO PRN (09:00)
[2018-03-14] MEDS: Famotidine 20 MG TAB PO SCH ×2 (09:17→21:55)
[2018-03-14] MEDS: Aggrenox 200-25mg CAP PO SCH (09:17)
[2018-03-14] MEDS: Nicotine 14 MG PATCH TD SCH (09:18)
--- NOTE | 2018-03-14 09:27 | ULT ---
CAROTID DOPPLER ULTRASOUND: Date: 03/14/18 HISTORY: CVA, ataxia. COMPARISON: Carotid Doppler from 2016. TECHNIQUE: Real-time Richard scale, color Doppler, and spectral analysis of the carotid arteries was performed with a linear transducer. FINDINGS: Antegrade flow both vertebral arteries. No hemodynamically significant stenosis within the internal c arotid arteries. Right ICA/CCA ratio is 1.18. Left ICA/CCA ratio is 1.27. IMPRESSION: No hemodynamically significant stenosis. POS: [facility]
--- NOTE | 2018-03-14 10:35 | MRI ---
NONCONTRAST ENHANCED MRA BRAIN: DATE: 03/14/18. HISTORY: Altered mental status. FINDINGS: Three-D [place] MRA is performed. Images are less than optimum due to extensive patient motion. Normal flow is seen in the distal ICA vessels. Flow is seen in the VANDANA, MCA, and LEAD ADVISOR vessels. Flow is also seen in the distal aspect of t he vertebral arteries as well as the basilar artery. IMPRESSION: Normal [place] MRA. Exam is limited due to patient motion. POS: [facility]
--- NOTE | 2018-03-14 10:36 | MRI ---
MRI BRAIN WITHOUT CONTRAST: Date: 03/14/18 HISTORY: Altered mental status. Vertebrobasilar CVA. FINDINGS: Correlation is made with the noncontrast CT brain from earlier today. Comparison is made with the MRI brain dated 08/11/16. No restricted diffusion is seen. Changes of chronic small vessel ischemic disease in the periventricu lar white matter and gliosis in the brainstem (predominantly omayra) is redemonstrated. No evidence of acute infarction, hemorrhage, midline shift, or abnormal extra-axial fluid collections are seen. Vent ricular size is stable and the basilar cisterns are patent. The visualized paranasal sinuses and mast oid air cells are well aerated. IMPRESSION: 1. No evidence of acute intracranial process. 2. Chronic small vessel ischemic disease. POS: [facility]
[2018-03-14] MEDS ORDERED: cloNIDine 0.1 MG TAB PO PRN (12:09)
[2018-03-14] MEDS ORDERED: Amlodipine 5 MG TAB PO SCH (12:15)
[2018-03-14] MEDS: Acetaminophen 500 MG TAB PO PRN (12:40)
[2018-03-14 13:39] LABS: Bilirubin Negative (Negative); Blood, Urine Negative (Negative); Clarity CLEAR (Clear); Glucose, Urine (Dipstick) Negative (Negative); Leukocyte Negative (Negative); Nitrite Negative (Negative); Protein, Urine (Dipstick) Negative (Neg-Trace); Specific Gravity, Urine 1.011 (1.002-1.036); Urobilinogen 0.2 mg/dL (0.2-1.0)
[2018-03-14 13:41] LABS: Bacteria/HPF None Seen HPF (None Seen); Hyaline Casts/LPF 0-3 HYALINE CAST LPF (0-3 Hyaline); RBC/HPF 0-3 HPF (0-3); Squamous Epithelial None Seen HPF (0-3); WBC/HPF None Seen HPF (0-3)
[2018-03-14 13:53] LABS: Amphetamine Not Detected (NotDetected); Barbiturates Screen Not Detected (NotDetected); Benzodiazepine Screen Not Detected (NotDetected); Cocaine Metabolite Screen Not Detected (NotDetected); Medtox Reader # READER 4; Methadone Not Detected (NotDetected); Methamphetamine Not Detected (NotDetected); Opiate Screen Not Detected (NotDetected); Oxycodone Screen Not Detected (NotDetected); Phencyclidine (PCP) Not Detected (NotDetected); THC/Cannabinoid Screen Not Detected (NotDetected); Tricyclic Screen Not Detected (NotDetected)
[2018-03-14 13:54] LABS: Medtox Control Line Valid? VALID (VALID)
--- NOTE | 2018-03-14 19:14 | CON ---
DATE OF CONSULTATION: 03/14/2018 REFERRING PROVIDER: Dr. Atif Esteves. REASON FOR CONSULTATION: Confusion. HISTORY OF PRESENT ILLNESS: Ms. Garcia is a pleasant 72-year-old female who has been conc erned for evaluation of confusion. History is obtained from patient's medical chart. Apparently, th e patient has been having increasing episodes of confusion and generalized weakness over the past 3 d ays. She had fell at home and striking her head on the coffee table, which resulted in laceration to the both posterior aspect of right side of the neck, this required 2 stitches. The patient did not have any loss of consciousness. The patient currently takes Talwin for her pain control. She also h ad a glass of wine to drink at home before her presentation. This was obtained from patient's nurse. Apparently, she states that she is coming back to her normal self as her symptoms are much better. She denies headache, chest pain, palpitation, nausea, vomiting, abdominal pain, fever or chills. PAST MEDICAL HISTORY: Significant for hypertension, COPD, dyslipidemia, chronic pain syndrome, fibro myalgia, history of CVA, history of migraine headaches, and history of multiple falls. PAST SURGICAL HISTORY: Significant for hysterectomy and appendectomy. SOCIAL HISTORY: She denies smoking. She does drink alcohol on occasions. She denies illicit drug u se. CURRENT MEDICATIONS: Please review MAR. ALLERGIES: Include CODEINE, ERYTHROMYCIN, and NSAIDS. FAMILY HISTORY: Noncontributory. REVIEW OF SYSTEMS: As mentioned, which was negative. PHYSICAL EXAMINATION: VITAL SIGNS: Blood pressure of 164/91, pulse of 78, temperature of 98, respirations of 18, O2 sats 9 2% on room air. GENERAL: Well-developed, well-nourished female, sitting on bed, eating her supper without any difficulty. RESPIRATORY: Clear to auscultation bilaterally. CARDIOVASCULAR: Regular rate and rhythm. NEUROLOGIC: Mental status: The patient is awake, alert, and oriented x3. Speech and language: Flu ent speech. Cranial nerves: Pupils are 3 mm and reactive. Visual gary are intact. External musc les are intact. No nystagmus is noted. Face is symmetric. Tongue and uvula midline. Motor exam sh owed normal tone and bulk with a 5/5 strength in both upper and lower extremities. Babinski: Planta r responses flexion bilaterally. Sensory: Sensation is intact and symmetric. Deep tendon reflexes 2+ reflexes in both upper and lower extremities. Coordination intact to [id number] and finge r tapping bilaterally. LABORATORY DATA: Reviewed which included CBC, coag panel, CMP, urinalysis, and urine drug screen, wh ich is significant for BUN of 30, creatinine of 1.53, otherwise unremarkable. IMAGING STUDIES: MRI brain without contrast was reviewed, which showed no acute intracranial abnorma lity. MRA head was reviewed, which showed no acute intracranial vascular abnormality. Carotid Doppl er results were reviewed, which showed no hemodynamically significant stenosis in both carotid arteri es. IMPRESSION: 1. Altered mental status, likely toxic metabolic encephalopathy. 2. Gait imbalance, likely medication induced. Ms. Garcia is a pleasant 72-year-old female who presented with the increasing episodes of confusion and recent episode of falling down and these are likely contributed by toxic metabolic ence phalopathy. These are likely secondary to medication induced. I would recommend tapering off all th e narcotic pain medications. Continue supportive care. Continue current medical management. Thank you for your consultation.
[2018-03-14] MEDS ORDERED: Atorvastatin Calcium 40 MG TAB PO SCH (21:00)
[2018-03-15] MEDS: Acetaminophen 500 MG TAB PO PRN ×2 (03:37→09:48)
[2018-03-15 05:54] LABS: ALT (SGPT) 14 U/L (8-55); AST (SGOT) 13 U/L (5-34); Albumin 3.5 g/dL (3.4-4.8); Alkaline Phosphatase 118 U/L (40-150); Anion Gap 11 mmol/L (10-20); BUN (Urea Nitrogen) 13 mg/dL (9.8-20.1); Bilirubin, Total 0.2 mg/dL (0.2-1.2); Calc. Creatinine Clearance 70 mL/min (70-130); Calcium 8.6 mg/dL (7.8-10.44); Carbon Dioxide 27 mmol/L (23-31); Cardiac Risk 3.4 (Less than 4.5); Chloride 104 mmol/L (98-107); Cholesterol 180 mg/dl (< 200 Desired); Estimated GFR-MDRD 70; Globulin 2.6 g/dL (2.4-3.5); Glucose 100 mg/dL (80-115); HDL Cholesterol 53 mg/dL (>60 Neg Risk); LDL Cholesterol, Calculated 107 mg/dL; Phosphorus 3.2 mg/dL (2.3-4.7); Potassium 3.8 mmol/L (3.5-5.1); Protein, Total 6.1 g/dL (6.0-8.3); Sodium 138 mmol/L (136-145); Triglycerides 99 mg/dL (Less than 150)
[2018-03-15 06:00] LABS: Eosinophils 2 % (0-10); Hemoglobin 11.1 g/dL (12.0-16.0); Lymphocytes 37 % (21-51); MDiff Complete? YES; Mean Corpuscular HGB CONC 33.5 g/dL (32.0-36.0); Mean Corpuscular Hemoglobin 32.6 pg (27.0-31.0); Mean Corpuscular Volume 97.3 fl (81.0-99.0); Mean Platelet Volume 6.9 fL (7.4-10.4); Monocytes 6 % (0-10); Neutrophil 55 % (42-75); PLT Morphology Comment Appears Adequate; Platelet Count 269 thou/uL (130-400); RBC Distribution Width 12.7 % (11.5-14.5); White Blood Cell (WBC) Count 5.3 thou/uL (4.8-10.8)
[2018-03-15] MEDS ORDERED: Amlodipine 5 MG TAB PO SCH (09:00)
[2018-03-15] MEDS: Famotidine 20 MG TAB PO SCH (09:48)
[2018-03-15] MEDS: Nicotine 14 MG PATCH TD SCH (09:48)
[2018-03-15] MEDS: Aggrenox 200-25mg CAP PO SCH (09:48)
[2018-03-15 11:49] VITALS: TEMP 98.6
[2018-03-15 14:16] VITALS: BP 152/71
--- NOTE | 2018-03-16 10:38 | DIS ---
DATE OF DISCHARGE: 03/15/2018 DISCHARGE DISPOSITION: Home. FOLLOWUP: 1. Follow up with primary care physician, Dr. Ken in 1 week. 2. Follow up with Neurology, Dr. Lyndsay Blood in 10-14 days. 3. [facility] will be set up as outpatient. The patient was seen and examined on the day of discharge. Denies any new complaints. No chest pain , shortness of breath or palpitations. DISCHARGE MEDICATIONS: Same as admission medications. She was advised to minimize the narcotic use until seen by primary care physician. BRIEF HOSPITAL COURSE: The patient is a 72-year-old female with COPD, hypertension, dyslipidemia, ch ronic pain syndrome on chronic narcotics, presented to the hospital with fall and dizziness. She was found to have laceration over the posterior head requiring arsenio. Please refer to the history and physical dated 03/14/2018 for further details. The patient was admitted to the hospital with a diagnosis of suspected CVA. MRI of the brain was neg ative for acute CVA. Patient was seen by Neurology, Dr. Lyndsay Blood. According to Dr. Blood, patient probably had toxic metabolic encephalopathy secondary to her medications. She was advised to taper o ff her narcotic pain medications. Carotid Doppler was negative for hemodynamically significant steno sis. Chest x-ray and urinalysis was negative as well. FINAL DIAGNOSES: 1. Toxic metabolic encephalopathy probably secondary to medications. 2. Gait imbalance secondary to medications, resolved. Patient has been cleared by physical therapy. 3. Acute kidney injury secondary to dehydration, resolved. 4. Chronic kidney disease stage 2. 5. Hypertension with hypertensive urgency on admission. 6. Anxiety and depression. 7. Dyslipidemia. 8. Chronic obstructive pulmonary disease. 9. Chronic pain syndrome on chronic narcotics. 10. Fibromyalgia. 11. History of cerebrovascular accident, currently on Plavix per PCP. 12. History of multiple falls. A 24-hour supervision with fall precaution was emphasized. 13. The patient will follow up with primary care physician or the emergency room for staple removal.
== END 2018-03-15 13:40 | disposition home health service (06) | DRG 92 ==
LOC: ERS 23:22 → 2SE 03-14 01:36
PROVIDERS: ADMIT Family Medicine; ATTEND Family Medicine
PROC: 0HQ0XZZ Repair Scalp Skin, External Approach (ICD-10-PCS; principal; 2018-03-14)
DX: G92 Toxic encephalopathy (principal); N17.9 Acute kidney failure, unspecified; E87.5 Hyperkalemia; J44.9 Chronic obstructive pulmonary disease, unspecified; E86.0 Dehydration; Z86.73 Personal history of transient ischemic attack (TIA), and cerebral infarction without residual deficits; G89.4 Chronic pain syndrome; M79.7 Fibromyalgia; F17.210 Nicotine dependence, cigarettes, uncomplicated; S01.01XA Laceration without foreign body of scalp, initial encounter; W19.XXXA Unspecified fall, initial encounter; I16.0 Hypertensive urgency; T39.95XA Adverse effect of unspecified nonopioid analgesic, antipyretic and antirheumatic, initial encounter; I12.9 Hypertensive chronic kidney disease with stage 1 through stage 4 chronic kidney disease, or unspecified chronic kidney disease; N18.2 Chronic kidney disease, stage 2 (mild)
CPT/HCPCS: 36415; 70450; 70544; 70551; 71045; 80053; 80061; 80306; 81001; 82553; 83735; 83880; 84100; 84443; 84484; 85007; 85025; 85027; 85610; 85730; 93005; 93880; 94760; G8978-GP-CJ; G8979-GP-CJ; G8980-GP-CJ; G8987-GO-CI; G8988-GO-CI; G8989-GO-CI; G8996-GN-CI; G8997-GN-CH; J2001; J3010

== ENCOUNTER 2018-12-07 11:31 | Emergency (ER) | payer MEDICARE ==
[2018-12-07 12:15] LABS: Bilirubin Negative (Negative); Blood, Urine Small (Negative); Clarity CLOUDY (Clear); Glucose, Urine (Dipstick) Negative (Negative); Leukocyte Large (Negative); Nitrite Negative (Negative); Protein, Urine (Dipstick) Negative (Neg-Trace); Specific Gravity, Urine 1.012 (1.002-1.036)
[2018-12-07 12:17] LABS: Bacteria/HPF 4+ HPF (None Seen); Hyaline Casts/LPF 0-3 HYALINE CAST LPF (0-3 Hyaline); Pathc Cast-AUWi Flag 0.29 (0-2.49); Squamous Epithelial 0-3 HPF (0-3)
[2018-12-07 12:31] LABS: Yeast-AUWi Flag 47.3 (0-25.0)
[2018-12-07 12:33] LABS: Yeast-All Forms None Seen HPF (None Seen)
== END 2018-12-07 12:53 | disposition home or self-care (01) ==
LOC: ERS 11:31
DX: N30.91 Cystitis, unspecified with hematuria (principal); G43.909 Migraine, unspecified, not intractable, without status migrainosus; I10 Essential (primary) hypertension; J44.9 Chronic obstructive pulmonary disease, unspecified; F17.290 Nicotine dependence, other tobacco product, uncomplicated; Z79.899 Other long term (current) drug therapy
CPT/HCPCS: 81003; 81015; 99283

== ENCOUNTER 2019-10-16 19:25 | Inpatient (IN) | payer MEDICARE ==
[~2019-10-16 19:25] MED LIST: Iopamidol-370 76% 500 ML 1 ML ONE
[2019-10-16] MEDS ORDERED: Ondansetron PF 4 MG/2 ML Vial ONE (19:27)
[2019-10-16 19:41] LABS: #Basophils 0.1 thou/uL (0.0-0.2); #Eosinphils 0.2 thou/uL (0.0-0.7); #Lymphocytes 3.7 thou/uL (1.20-3.40); #Monocytes 0.6 thou/uL (0.11-0.59); #Neutrophils 4.1 thou/uL (1.40-6.50); %Eosinophils 1.9 % (0.0-10.0); %Lymphocytes 42.4 % (21.0-51.0); %Monocytes 6.8 % (0.0-10.0); Hemoglobin 12.5 g/dL (12.0-16.0); Mean Corpuscular HGB CONC 33.2 g/dL (32.0-36.0); Mean Corpuscular Hemoglobin 30.3 pg (27.0-31.0); Mean Corpuscular Volume 91.3 fL (78.0-98.0); Mean Platelet Volume 6.9 fL (7.4-10.4); Platelet Count 323 thou/uL (130-400); RBC Distribution Width 13.9 % (11.5-14.5); Red Blood Cell (RBC) Count 4.12 mill/uL (4.20-5.40); White Blood Cell (WBC) Count 8.6 thou/uL (4.8-10.8)
[2019-10-16] MEDS ORDERED: niCARdipine 25 MG in Sodium Chloride 0.9% 250 ML 240 ML IVPB SCH (19:45)
[2019-10-16 19:49] LABS: INR-International Normal Ratio 0.9; PTT 28.6 SEC (22.9-36.1); Prothrombin Time 12.4 SEC (12.0-14.7)
[2019-10-16 19:54] LABS: ALT (SGPT) 39 U/L (8-55); AST (SGOT) 27 U/L (5-34); Alkaline Phosphatase 102 U/L (40-110); Anion Gap 10 mmol/L (10-20); BUN (Urea Nitrogen) 30 mg/dL (9.8-20.1); Bilirubin, Total 0.2 mg/dL (0.2-1.2); CK (CPK) 26 U/L (29-168); Calc. Creatinine Clearance 0 mL/min (70-130); Calcium 8.5 mg/dL (7.8-10.44); Carbon Dioxide 25 mmol/L (23-31); Chloride 102 mmol/L (98-107); Estimated GFR-MDRD 42; Globulin 3.4 g/dL (2.4-3.5); Glucose 121 mg/dL (83-110); Potassium 4.3 mmol/L (3.5-5.1); Protein, Total 7.4 g/dL (6.0-8.3); Sodium 133 mmol/L (136-145)
--- NOTE | 2019-10-16 20:56 | CT ---
CT BRAIN WITHOUT CONTRAST: Date: 10/16/19 HISTORY: Left-sided deficit, vomiting, high blood pressure. FINDINGS: Comparison made with exam of 03/14/18. No evidence of acute infarct, hemorrhage, midline shift, or abnormal extra-axial fluid collections ar e seen. There are changes of chronic small vessel ischemic disease. The ventricular size is appropria te and the basilar cisterns are patent. The bony calvarium is intact. The visualized paranasal sinuse s and mastoid air cells are well aerated. IMPRESSION: No CT evidence of acute intracranial process. Discussed over the telephone with ER physician, Dr. Tim Lea, at 1941 hours. CODE CR. POS: [facility]
--- NOTE | 2019-10-16 20:58 | CT ---
CTA HEAD WITH IV CONTRAST AND 3D POST PROCESSING: CTA NECK WITH IV CONTRAST AND 3D POST PROCESSING: HISTORY: Left-sided deficits. High blood pressure. FINDINGS: There is calcified plaque noted in the vertebrobasilar and carotid artery systems bilaterally. There is about 30% stenosis at the origin of the left ICA. About 30% stenosis is also noted at the origin o f the right ICA. No major branch occlusion, high grade stenosis or aneurysm formation is seen. There is mild stenosis in the distal left vertebral artery. IMPRESSION: No evidence of hemodynamically significant stenosis. Discussed over the telephone with ER physician, Dr. Tim Lea at 8:07 p.m. CODE CR POS: [facility]
[2019-10-16] MEDS: [UNRECOGNIZED DRUG - REMARK] FS SCH (21:00)
--- NOTE | 2019-10-16 21:01 | RAD ---
PORTABLE CHEST 1 VIEW: Date: 10/16/19 Time: 2028 hours HISTORY: Level I stroke. FINDINGS: Comparison made with exam of 03/14/18. The heart size is normal. The lungs are expanded without lobar consolidation, pneumothoraces, or pleu ral effusions. IMPRESSION: No acute process. POS: [facility]
[2019-10-16] MEDS ORDERED: Labetalol HCl 100 MG/20 ML VIAL SLOW IVP PRN (21:02)
[2019-10-16] MEDS ORDERED: hydrALAZINE 20 MG/ML VIAL SLOW IVP PRN (21:02)
[2019-10-16] MEDS ORDERED: niCARdipine 25 MG in Sodium Chloride 0.9% 250 ML 250 ML IVPB PRN (21:02)
[2019-10-16] MEDS ORDERED: Ondansetron PF 4 MG/2 ML Vial IVP PRN (21:09)
[2019-10-16] MEDS ORDERED: Acetaminophen 325 MG TAB PO PRN (21:13)
[2019-10-16 21:29] LABS: Amphetamine Not Detected (NotDetected); Barbiturates Screen Not Detected (NotDetected); Benzodiazepine Screen Not Detected (NotDetected); Cocaine Metabolite Screen Not Detected (NotDetected); Medtox Control Line Valid? VALID (VALID); Medtox Reader # READER 4; Methadone Not Detected (NotDetected); Methamphetamine Not Detected (NotDetected); Opiate Screen Not Detected (NotDetected); Oxycodone Screen Not Detected (NotDetected); Phencyclidine (PCP) Not Detected (NotDetected); THC/Cannabinoid Screen Not Detected (NotDetected); Tricyclic Screen Not Detected (NotDetected)
--- NOTE | 2019-10-16 22:40 | HP ---
CHIEF COMPLAINT: Altered mental status. HISTORY OF PRESENT ILLNESS: This patient is a 74-year-old female, who was actually in this facility in February of last year with fall and some dizziness, at which time, it was felt she most likely was suffering from medication side effects. The patient has some chronic pain syndrome related to fibromyalgia and takes Talwin. The patient ran out of her Talwin a couple of days ago. It is not uncommon for her to go a few days without Talwin in the past. She was apparently in her normal state of health today. She was eating dinner with her son. He reports that she was eating more slowly than normal, but she did finish and even ate some dessert, but then got up and went and sat down like she normally does and fell asleep. However, a few minutes later, she got up, tried to stand and fell face forward onto the ground. The son was unable to lift her because of his own history of strokes and he had his son help and they were able to get her up in a chair and called for an ambulance. The patient was subsequently brought here to the emergency department. She has not been conscious or responsive since that time. She has had some vomiting in the emergency department. They are unaware of any other issues that she might have been having lately. Her eldest son did ask me immediately upon my entry to the exam room whether we had tested her drug levels for her other medicines because she does take more of her other medications including her gabapentin when she is out of her Talwin. They are unaware specifically if anything else that she might have taken. REVIEW OF SYSTEMS: Unobtainable given the patient's mental status. PAST MEDICAL HISTORY: Notable for the above mentioned admission in February 2018 for falls, likely related to medication side effects. She has hypertension, COPD, dyslipidemia, chronic pain syndrome, fibromyalgia, history of CVA, chronically on Aggrenox at that time in 2018, history of migraines, history of falls. PAST SURGICAL HISTORY: Hysterectomy, appendectomy. PSYCHIATRIC HISTORY: History of depression and anxiety. CURRENT MEDICATIONS: Based on her recent prescription fills, she does receive; 1. Pentazocine-naloxone tablet t.i.d. 2. Prochlorperazine 10 mg p.r.n. 3. Bupropion SR 100 mg tablet sustained release one tablet daily. 4. Gabapentin 300 mg 2 p.o. t.i.d. 5. Lisinopril 10 mg daily. 6. Albuterol inhaler p.r.n. 7. Fluoxetine 40 mg two p.o. daily. 8. Anoro Ellipta one puff daily. 9. Valacyclovir 500 mg one p.o. b.i.d. for fever blisters. ALLERGIES: CODEINE, ERYTHROMYCIN, NSAIDS, PENICILLIN G, AND SULFA. PHYSICAL EXAMINATION: VITAL SIGNS: On arrival, BP is 201/103, most recent BP is 129/73, pulse 78, respirations 20, temperature 97.3, O2 saturations 96% on room air. GENERAL APPEARANCE: Age-appropriate female. She is not awake. She is in the ER bed at 30 degree angle. She is breathing comfortably. She did have some episodes of vomiting during the time of my interview and exam. She does not respond to verbal stimuli, nor does she respond to noxious stimuli. HEENT: The patient appears to myself to have some resistance to eye opening and pupils are very sluggish. She has no evident OP lesions. NECK: Supple and symmetric. HEART: Regular without murmurs, gallops, or rubs. LUNGS: Have diminished breath sounds and scattered rales throughout, slightly worse on the left. She does have a very wet cough. ABDOMEN: Soft, and nondistended. Positive bowel sounds. No masses. No organomegaly. EXTREMITIES: No cyanosis, clubbing, or edema. NEUROLOGICAL: The patient does appear to be moving spontaneously subtly in her arms and legs, but she is not following any commands. Strength cannot be tested. LABORATORY DATA: White count 8.6, hemoglobin 12.5, platelets 323. INR 0.9, PTT 28.6. Sodium 133, potassium 4.3, chloride 102, CO2 of 25, BUN 13, creatinine 1.25, GFR 42, glucose 121, AST 27, ALT 39. Troponin 0.014. Drug screen is negative. Chest x-ray shows nothing acute. CT brain, nothing acute. CT angiogram, nothing acute. IMPRESSION AND PLAN: 1. Acute encephalopathy, etiology is unclear. Certainly, stroke is a possibility, although she does not appear to be significantly localizing. She is status post tPA and has not had any significant resolution in her encephalopathy or symptoms. She may have toxic encephalopathy from misuse of her other medications based on the history given by her son. She will continue to be monitored closely in the ICU following the tPA. We will get neurology and stroke team consult. 2. Hypertensive urgency, status post tPA. The patient has been on a Cardene drip. We will continue to manage her blood pressure thusly in order to reduce risk of bleed. 3. History of chronic pain syndrome, avoiding any psychotropic medications at this point. 4. Apparent history of cerebrovascular accident with no significant findings on the CT scan. For now, holding Plavix. 5. History of hyperlipidemia. Does not appear to be on statin presently. Again, we will reassess that with a lipid panel in a couple of days. 6. Chronic kidney disease, stage 3. Current creatinine is slightly off baseline, but fairly close. Does not appear to be an acute renal injury. Job ID: [id number]
[2019-10-17] MEDS ORDERED: Vancomycin HCl 1 GM in Premix Bag 1 BAG IVPB SCH (00:45)
[2019-10-17] MEDS: Vancomycin HCl 1.25 GM in Sodium Chloride 0.9% 250 ML 250 ML IVPB SCH (01:00)
[2019-10-17] MEDS ORDERED: Piperacillin/Tazobactam 4.5 GM in Sodium Chloride 0.9% 100 ML IVPB SCH (01:00)
[2019-10-17 03:22] LABS: Actual Bicarbonate (HCO3a) 21.6 mEq/L (22-28); Base Excess (BEa) -6.3 mEq/L (-2.0 to +3.0); CO2 Tension 52.3 mmHg (35.0-45.0); Calcium, Ionized 1.15 mmol/L (1.12-1.30); Carboxyhemoglobin (COHb) 2.8 gm% (0.0-3.0); Hemoglobin (Hb) 13.3 g/dL (12.0-16.0); O2 Tension (PaO2) 60.1 mmHg (> 70.0); Potassium - ABG Lab 4.47 mmol/L (3.70-5.30)
[2019-10-17] MEDS ORDERED: Midazolam HCl 2 mg/2 ml Vial ONE (03:36)
[2019-10-17] MEDS ORDERED: Propofol 1,000 MG/100 ML VIAL IV ONE (03:46)
[2019-10-17] MEDS ORDERED: DISCONTINUE PREVIOUS NARCOTIC PAIN MEDICATIONS AND BENZODIAZEPINES FS SCH (04:14)
[2019-10-17] MEDS ORDERED: fentaNYL Citrate/PF 2,000 MCG in Sodium Chloride 0.9% 60 ML IV SCH (04:14)
[2019-10-17] MEDS ORDERED: Propofol BOLUS 1,000 MG/100 ML VIAL IV PRN (04:14)
[2019-10-17] MEDS ORDERED: Lorazepam 2 MG/ML VIAL SLOW IVP PRN (04:14)
[2019-10-17] MEDS ORDERED: Fentanyl BOLUS 250 ML IVPB PRN (04:14)
[2019-10-17] MEDS ORDERED: Propofol 1,000 MG/100 ML VIAL IV PRN (04:14)
[2019-10-17 04:24] LABS: Actual Bicarbonate (HCO3a) 17.9 mEq/L (22-28); Base Excess (BEa) -8.5 mEq/L (-2.0 to +3.0); CO2 Tension 40.4 mmHg (35.0-45.0); Calcium, Ionized 1.12 mmol/L (1.12-1.30); Carboxyhemoglobin (COHb) 2.6 gm% (0.0-3.0); Hemoglobin (Hb) 12.8 g/dL (12.0-16.0); O2 Tension (PaO2) 66.2 mmHg (> 70.0); Potassium - ABG Lab 4.25 mmol/L (3.70-5.30); pH, Arterial 7.27 (7.35-7.45)
[2019-10-17 04:30] LABS: ALV-art Gradient 231.025 (0-20); Puncture Site L RADIAL; pH, Arterial 7.23 (7.35-7.45)
[2019-10-17 04:31] LABS: Puncture Site L RADIAL
--- NOTE | 2019-10-17 04:49 | PDOC.BPN ---
<Lenore Dangelo E - Last Filed: 10/17/19 04:47> - Brief Progress Note INDICATION: Failure to Protect Airway PROCEDURE HOME CARE SPECIALIST: Lenore Dangelo DO; Shelton Ervin DO ATTENDING PHYSICIAN: Monae Barfield MD CONSENT: Urgent intubation. Consent was implied prior to the procedure based on previously indicated wishes. PROCEDURE SUMMARY: A time out was performed. My hands were washed immediately prior to the procedure. I wore gloves throughout the procedure. The patient was placed on a personnel monitor including continuous pulse oximetry. Rapid Sequence Intubation was conducted. At 0338, the patient received 25 mg of Etomidate and 2 mg of Versed for induction. Cricoid pressure was maintained from time induction agent was given to time of cuff balloon inflation. Using a glide scope laryngoscope and a size 7.5 endotracheal tube with stylet, the patient was intubated on the 1st attempt at 0340. The stylet was removed and cuff balloon was inflated. Appropriate endotracheal tube position was confirmed by direct visualization of vocal cord passage, fogging of the tube, CO2 colometric indicator and symmetric breath sounds. The tube was secured at 21 cm at the lower lip. Post intubation chest x-ray is pending at this time. <Monae Barfield - Last Filed: 10/19/19 07:17> - Brief Progress Note I was present and participated in the above documented procedure. Uncomplicated. Care per primary team. Mateo
--- NOTE | 2019-10-17 04:52 | PDOC.EVN ---
Event Note - Event Note Event Note: Pt assessed at different times overnight. Pt with decreased LOC, vomiting. Not responding to sternal rub. Randall coarse breath sounds. maintaining oxygenation, however, because of ongoing vomiting she needed intubation for airway protection. Residents consulted for intubation. Pt currently intubated and on vent. Blood gases being checked.
[2019-10-17] MEDS ORDERED: Sodium Chloride 0.9% 15 ML NEB ONE (05:36)
--- NOTE | 2019-10-17 07:40 | RAD ---
CHEST 1 VIEW: Date: 10/17/19 INDICATION: History of aspiration. COMPARISON: Prior exam dated 10/16/19. FINDINGS: Lungs are clear. Heart size is normal. Left costophrenic angle is excluded. No acute osseous abnormal ity is evident appearing. IMPRESSION: No acute cardiopulmonary abnormality. POS: BH
--- NOTE | 2019-10-17 07:44 | RAD ---
CHEST 1 VIEW: INDICATION: Status post intubation. COMPARISON: Prior exam dated 10/17/2019 at 12:14 a.m. FINDINGS: The patient has been intubated. The ET tube tip is seen approximately 5.5 cm from the level of the c carleen. No pneumothorax is evident. Lungs are clear. Heart size is normal. No acute osseous abnorm ality is evident. IMPRESSION: Interval intubation. POS: BH
[2019-10-17] MEDS ORDERED: Sodium Chloride 0.9% 1,000 ML IV SCH (08:45)
[2019-10-17 09:07] LABS: #Lymphocytes 1.3 thou/uL (1.20-3.40); #Monocytes 0.8 thou/uL (0.11-0.59); #Neutrophils 11.1 thou/uL (1.40-6.50); %Eosinophils 0.1 % (0.0-10.0); %Lymphocytes 9.9 % (21.0-51.0); %Monocytes 6.1 % (0.0-10.0); %Neutrophils 83.9 % (42.0-75.0); Hemoglobin 10.8 g/dL (12.0-16.0); Mean Corpuscular HGB CONC 32.3 g/dL (32.0-36.0); Mean Corpuscular Volume 92.8 fL (78.0-98.0); Mean Platelet Volume 6.9 fL (7.4-10.4); Platelet Count 290 thou/uL (130-400); RBC Distribution Width 13.8 % (11.5-14.5); Red Blood Cell (RBC) Count 3.61 mill/uL (4.20-5.40); White Blood Cell (WBC) Count 13.2 thou/uL (4.8-10.8)
[2019-10-17 09:25] LABS: ALT (SGPT) 32 U/L (8-55); AST (SGOT) 21 U/L (5-34); Albumin 3.6 g/dL (3.4-4.8); Alkaline Phosphatase 89 U/L (40-110); Anion Gap 15 mmol/L (10-20); BUN (Urea Nitrogen) 35 mg/dL (9.8-20.1); Bilirubin, Total 0.4 mg/dL (0.2-1.2); Calc. Creatinine Clearance 45 mL/min (70-130); Calcium 8.1 mg/dL (7.8-10.44); Carbon Dioxide 24 mmol/L (23-31); Chloride 100 mmol/L (98-107); Estimated GFR-MDRD 38; Globulin 2.8 g/dL (2.4-3.5); Glucose 118 mg/dL (83-110); Potassium 4.3 mmol/L (3.5-5.1); Protein, Total 6.4 g/dL (6.0-8.3); Sodium 135 mmol/L (136-145)
--- NOTE | 2019-10-17 09:43 | MRI ---
MRI BRAIN WITH AND WITHOUT CONTRAST: DATE: 12/17/2018 12:00 AM. CLINICAL HISTORY: CVA. COMPARISON: Head CT previous day. FINDINGS: There is a large region of signal abnormality and susceptibility centered within the brainstem with a ssociated expansion of the omayra which is concerning for a hyperacute hemorrhage. There is moderate chronic microvascular ischemic disease involving the cerebral white matter there is mixed diffusion-weighted signal of the brainstem correlating to blood products. Internal curvilinear foci of enhancement within the brainstem abnormality suggests vascularity. There is no ventriculomegaly or supratentorial midline shift. 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 Follow-up noncontrast head CT would prove useful for further evaluation. Telephone call to physician national account manager placed at [phone] hours. CODE CR Transcribed Date/Time: 10/17/2019 9:46 AM
[2019-10-17] MEDS: Sodium Chloride 0.9% 1,000 ML IV SCH ×2 (10:00→12:48)
[2019-10-17] MEDS: Pantoprazole 40 MG VIAL IVP SCH ×2 (11:01→21:06)
--- NOTE | 2019-10-17 13:12 | PRG ---
DATE OF SERVICE: 10/17/2019 TIME OF SERVICE: 8:15 a.m. CONSULTATIONS ON THE CASE: 1. Dr. Jack Brito, Neurology. 2. Pulmonary Critical Care on-call, consulted. SUBJECTIVE: This is a very unfortunate 74-year-old female, who was evaluated at the patient's bedside today as she was assigned to me for evaluation and further review showed that the patient came in to [facility] with initial suspicion of stroke and I do see that the patient is status post tPA. Eventually overnight, the patient went into significant intractable nausea and vomiting, so in order to protect the airway. The patient was intubated by the on-call hospitalist with the help of anesthesia and subsequently is being supported at this point of time by the same. The patient is noncommunicative secondary to intubated status as well as on sedation. Also on my evaluation, the patient had a low blood pressure, for which IV hydration support was given, which optimized the patient's blood pressure. There was an MRI, which was ordered from 10/16/2019. OBJECTIVE: GENERAL: The patient is sedated, intubated, and noncommunicative. VITAL SIGNS: She has a heart rate of 65 per minute, respiratory rate of 20 per minute, saturation 99%, and blood pressure of 83/53 mmHg but the current one is around 115/68 mmHg. She has an airway, which is an ET tube in place. HEENT: Atraumatic and normocephalic. CVS: S1 and S2. CHEST: Bilateral air entry present. No rhonchi. No wheeze. ABDOMEN: Soft and nontender. Bowel sounds are present. EXTREMITIES: No cyanosis. No edema. No icterus. NEUROLOGIC: The patient is sedated and intubated. Could not be completely examined at this point of time, though she does have some decerebrate posture. LABORATORY DATA: WBC is 13.2, hemoglobin 10.8, hematocrit 33.5, platelets are 290. INR is pending. ABG; pH is 7.27, pCO2 is 40, and pO2 is 66.2. Sodium 135, potassium 4.3, chloride 100, carbon dioxide 24, BUN 15, creatinine 1.37. AST is 21 and ALT 32. Urine drug screen reviewed, negative. DIAGNOSTICS: CT of the brain done from 10/16/2019, no evidence of acute intracranial process is noted. CT angiogram of the neck and brain has been reviewed. No evidence of hemodynamically significant stenosis noted. MRI of the brain from 10/17/2019 reviewed, shows findings most consistent with hyperacute expansile hemorrhage of the brainstem. ASSESSMENT: 1. Acute initial suspected cerebrovascular accident as documented from 10/16/2019 with eventual tPA and transitioning this to acute respiratory failure, which was mild with associated intractable nausea and vomiting, for which the patient was intubated for airway protection. MRI of the brain done on 10/17/2019 shows evidence of cerebellar hemorrhage. At this point of time, the patient does have some decerebrate rigidity that I can evaluate and I have reviewed these findings with the consulted neurologist, Dr. Santiago, who has advised about further evaluation at this point of time. 2. History of recurrent cerebrovascular accidents. 3. Benign essential hypertension. 4. Chronic obstructive pulmonary disease. 5. Dyslipidemia. 6. Chronic pain syndrome. 7. Fibromyalgia. The patient on multiple medications for pain. PLAN: I have discussed in detail the diagnosis, treatment, and followup with the patient's family in detail. Advised about the findings of MRI, at this point of time with cerebellar hemorrhage. We will be following with a CT of the head, repeat to have definitive information on the same per my discussion with the radiologist as well as neurologist. At this point of time, Pulmonary, Critical Care, Neurology, who had been consulted prior awaiting recommendations from them and I did review the same with neurologist. We will continue supportive care, closely monitor the patient's blood pressure and I have notified the patient's family regarding the current findings and poor prognosis at this point of time. The patient's family have advised about the possibility of palliative hospice care after definitive CT of the head evaluation has been noted for the hemorrhage. We will follow their advice. Advance directives at this point of time is full code, but they are entertaining the idea of doing a DNR/DNI status after further diagnostic evaluation and recommendations from Neurology and Pulmonary/Critical Care. Job ID: [id number]
--- NOTE | 2019-10-17 13:14 | CON ---
DATE OF CONSULTATION: 10/17/2019 SERVICE: Pulmonary Medicine. REASON FOR CONSULTATION: ICU patient. HISTORY OF PRESENT ILLNESS: The patient is a 74-year-old white female with past medical history significant for hypertension. She was in her usual state of health when she stood up, had an abrupt onset of syncope. She was brought to the emergency department and she had physical exam characteristics that could be consistent with stroke. As such, she was within a window and was administered a dose of tPA. She is doing well until overnight, she started having episodes of hypotension, and hypertension. Blood pressures went up significantly, and she was unable to protect her airway. She was intubated emergently. 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 Her neurologic exam is quite devastating. She cannot provide me with additional details of her history. PAST MEDICAL HISTORY: 1. COPD. 2. Hypertension. 3. Dyslipidemia. 4. Fibromyalgia. 5. Chronic pain. 6. History of CVA. 7. Migraine headache. 8. History of falls. PAST SURGICAL HISTORY: 1. Hysterectomy. 2. Appendectomy. ALLERGIES: CODEINE, ERYTHROMYCIN, NSAIDS, PENICILLIN G, SULFA. MEDICATIONS: List of her inpatient medications was reviewed. No specific updates were made at this time. FAMILY HISTORY: Noncontributory. SOCIAL HISTORY: Negative for current alcohol, tobacco, or illicit drug use. She has no exposure to chemicals, dust, asbestos, or tuberculosis. REVIEW OF SYSTEMS: This cannot be obtained as the patient is currently unresponsive. LABORATORY DATA: WBC 13.2, hemoglobin 10.8, and platelets 290,000. INR 0.9. PH 7.27, pCO2 of 40, pO2 of 66. Creatinine 1.7. Basic metabolic profile and liver function studies are unremarkable. Troponin is negative x1. Urine drug screen is completely unremarkable. Blood cultures x2 and urine culture are negative to date. IMAGING DATA: 1. Demonstrates interval endotracheal tube placement. It is roughly 2 cm above the level of jan. I do not see any acute consolidation or cephalization present. Cardiac silhouette remains quite small. No obvious pleural parenchymal disease is present. 2. MRI of the brain demonstrates acute expansile hemorrhagic lesion of the brainstem. This is localized to the omayra. 3. CT [place] demonstrated no evidence of hemodynamically significant stenosis. 4. CT of the brain demonstrated no acute evidence of acute intracranial abnormality. ASSESSMENT: 1. Cerebrovascular accident, status post tPA with hemorrhagic conversion. 2. Acute respiratory failure secondary to inability to protect airway. 3. Chronic obstructive pulmonary disease without acute exacerbation. DISCUSSION AND PLAN: We will target a blood pressure of under 140. The patient has a devastating neurologic injury at this time consistent with no flow of information from the body up into the cortex of the brain. She has decerebrate posturing, and severe upper motor neuron lesion signs. The likelihood of meaningful recovery in this situation is quite low. We will continue having conversations with the family through time. Palliative will be involved. CRITICAL CARE TIME: 30 minutes. Job ID: [id number]
[2019-10-17] MEDS ORDERED: Vasopressin 40 UNIT, Admixture Fee 1 EACH in Sodium Chloride 0.9% 100 ML IV SCH (13:30)
[2019-10-17] MEDS ORDERED: hydrALAZINE 20 MG/ML VIAL SLOW IVP PRN (16:42)
[2019-10-17] MEDS: Labetalol HCl 100 MG/20 ML VIAL SLOW IVP PRN ×3 (21:04→22:47)
[2019-10-17] MEDS: Sodium Chloride 0.9% (PF) 10 ML VIAL FS PRN (21:06)
[2019-10-17] MEDS: [UNRECOGNIZED DRUG - REMARK] FS SCH (21:07)
[2019-10-17] MEDS: Morphine 2 MG/ML SYRINGE SLOW IVP PRN (23:01)
--- NOTE | 2019-10-17 23:26 | CON ---
DATE OF CONSULTATION: 10/17/2019 CONSULTING PHYSICIAN: Hospitalist Service. 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 Her prognosis is grave and chances of functional recovery are non-existent. PLAN: As per family's wishes, but I would be in favor of discontinuing support. HISTORY OF PRESENT ILLNESS: Ms. Garcia is a 74-year-old woman who was brought in via EMS, had laid down for a nap and when the family tried to arouse her, found her unresponsive, came in and had a CT of the brain done, which did not show any evidence of major vessel occlusion. There was no evidence of a bleed. She was given tPA. She was put on ventilatory support due to compromised respirations. Followup MRI revealed massive hemorrhage of the omayra. She remains on ventilatory support. She has some respiratory drive and a gag response. PAST MEDICAL HISTORY: Chronic pain, fibromyalgia, hypertension, COPD, hyperlipidemia, depression, anxiety, migraines. PAST SURGICAL HISTORY: Hysterectomy, appendectomy. ALLERGIES: CODEINE, PENICILLIN SULFA, EES. FAMILY HISTORY: Noncontributory. REVIEW OF SYSTEMS: Not obtainable due to her comatose state. PHYSICAL EXAMINATION: VITAL SIGNS: Blood pressure 136/76, pulse 92 and a sinus rhythm, saturations 98%, respirations 24. HEENT: Pupils are pinpoint. Doll's head maneuver did not elicit any deviation. Her eyes are conjugate and midline. She has some gag response to manipulation of her head. She has upgoing toes bilaterally. No spontaneous movements are seen otherwise. SUMMARY: This is a grave situation. There is massive pontine damage. The patient could end up in a locked-in state, which would be catastrophic. I would strongly suggest comfort measures and allowing her to pass. Job ID: [id number]
[2019-10-18] MEDS: Vancomycin HCl 1.25 GM in Sodium Chloride 0.9% 250 ML 250 ML IVPB SCH (00:48)
[2019-10-18] MEDS: Morphine 2 MG/ML SYRINGE SLOW IVP PRN ×3 (04:13→15:10)
[2019-10-18 04:26] LABS: #Basophils 0.1 thou/uL (0.0-0.2); #Lymphocytes 1.5 thou/uL (1.20-3.40); #Monocytes 0.6 thou/uL (0.11-0.59); %Basophils 0.4 % (0.0-1.0); %Eosinophils 0.2 % (0.0-10.0); %Lymphocytes 12.2 % (21.0-51.0); %Monocytes 4.9 % (0.0-10.0); %Neutrophils 82.3 % (42.0-75.0); ALT (SGPT) 25 U/L (8-55); AST (SGOT) 19 U/L (5-34); Albumin 3.4 g/dL (3.4-4.8); Alkaline Phosphatase 87 U/L (40-110); Anion Gap 13 mmol/L (10-20); BUN (Urea Nitrogen) 20 mg/dL (9.8-20.1); Bilirubin, Total 0.3 mg/dL (0.2-1.2); Calc. Creatinine Clearance 79 mL/min (70-130); Calcium 8.5 mg/dL (7.8-10.44); Carbon Dioxide 21 mmol/L (23-31); Cardiac Risk 3.3 (Less than 4.5); Chloride 105 mmol/L (98-107); Cholesterol 154 mg/dl (< 200 Desired); Estimated GFR-MDRD 71; Globulin 2.9 g/dL (2.4-3.5); Glucose 105 mg/dL (83-110); HDL Cholesterol 46 mg/dL (>60 Neg Risk); Hemoglobin 10.4 g/dL (12.0-16.0); LDL Cholesterol, Calculated 83 mg/dL; Mean Corpuscular HGB CONC 32.1 g/dL (32.0-36.0); Mean Corpuscular Hemoglobin 29.6 pg (27.0-31.0); Mean Corpuscular Volume 92.2 fL (78.0-98.0); Mean Platelet Volume 7.1 fL (7.4-10.4); Platelet Count 254 thou/uL (130-400); Potassium 3.6 mmol/L (3.5-5.1); Protein, Total 6.3 g/dL (6.0-8.3); RBC Distribution Width 14.5 % (11.5-14.5); Sodium 135 mmol/L (136-145); Triglycerides 125 mg/dL (Less than 150); White Blood Cell (WBC) Count 12.2 thou/uL (4.8-10.8)
--- NOTE | 2019-10-18 05:59 | PRG ---
DATE OF SERVICE: 10/18/2019 SERVICE: Pulmonary Medicine. INTERVAL HISTORY: The patient is doing great from respiratory standpoint. She is breathing comfortably. That being said neurologically, she continues to demonstrate a devastating injury to the brain. She cannot register any complaints. There were no significant overnight events. Blood pressures have been more stable. PHYSICAL EXAMINATION: VITAL SIGNS: Afebrile, pulse 98, blood pressure 130/70, respirations 26, and saturation 96%, currently on 31% FiO2 and a PEEP of 5. GENERAL: The patient is intubated. She is on no sedation and has had no paralytics. HEENT: Normocephalic and atraumatic. Sclerae white. Conjunctivae pink. Oral mucosa is moist without lesions. LUNGS: Very good air entry without any prolonged expiratory phase or wheezing present. HEART: Normal rate and regular. ABDOMEN: Soft, nontender, nondistended. Bowel sounds are positive. MUSCULOSKELETAL: No cyanosis or clubbing. There is no pitting in bilateral lower extremities. : Mir catheter in place. NEUROLOGIC: Pupils are equal, round, and reactive. That being said, her corneal reflex is absent. She does not withdraw from any noxious stimuli. On the bilateral lower extremities, she demonstrates a crossed extensor reflex. In the upper extremities, she postures. She does overbreathe the ventilator comfortably. She does have a cough with deep suctioning. LABORATORY DATA: WBC 12.2, hemoglobin 10.4, and platelets 243,000. INR 0.9. Creatinine 0.8. Basic metabolic profile and liver function studies are otherwise unremarkable. Urine drug screen is unremarkable. ASSESSMENT: 1. Acute respiratory failure secondary to inability to protect airway. 2. Cerebrovascular accident, status post tPA with hemorrhagic conversion in the pontine region. 3. Chronic obstructive pulmonary disease without current exacerbation. DISCUSSION AND PLAN: The patient is doing fine from respiratory standpoint. Unfortunately, neurologically she continues to demonstrate a catastrophic neurologic exam. The likelihood of a meaningful recovery is essentially non-existent. The family is telling us it would be in keeping with her values to transition over to comfort care if she did not have a chance at a functional, meaningful existent. We will continue our family discussions, but most likely, will be transitioned over to comfort care only within 24 to 48 hours. Critical Care will continue to follow along while she remains in this location. When the family is ready, however, we can extubate to comfort measures. CRITICAL CARE TIME: 30 minutes. Job ID: [id number]
[2019-10-18] MEDS: Pantoprazole 40 MG VIAL IVP SCH (09:38)
--- NOTE | 2019-10-18 11:26 | PDOC.PALCO ---
Palliative Care Consult - Consult Details Requesting Physician: Dr Leo Reason for Consult: goals of care, advance directives assistance, family support Family Members Present: none - Pertinent HPI 74 year old female who lives with her son. History of dizziness. Patient was at home with her son, sat on the couch after dinner and then fell asleep as usual. She stood up, then and fell face forward onto the ground. Patient was placed in a chair by her son and grandson, but never regained consciousness. Taken to the emergency room. Emesis in the emergency room subsequent intubtaion to protect airway and admitted to the CC[facility]. Initial CT did not reveal major vessel occlusion , tPA given, however MRI revealed massive hemorrhage of the omayra. - Pertinent PMH Chronic pain, fibromyalgia, hypertension, COPD, HDL, depression, anxiety - Social History Smoking Status: Unknown if ever smoked Alcohol Use: none Drug Use History: none Living Situation: with family/parents - Medications MAR Reviewed: Yes - Allergies Allergies/Adverse Reactions: Allergies Allergy/AdvReac Type Severity Reaction Status Date / Time codeine Allergy Verified 08/11/16 01:08 erythromycin base Allergy Verified 02/10/18 15:55 NSAIDS (Non-Steroidal Allergy Verified 08/11/16 01:08 Anti-Inflamma penicillin G Allergy Verified 08/11/16 01:08 Sulfa (Sulfonamide Allergy Verified 08/11/16 01:08 Antibiotics) - ROS Non Response: due to endotracheal tube, due to mental status - Objective Vital Signs: Vital Signs - Most Recent Temp Pulse Resp BP Pulse Ox 99.2 F 93 19 217/109 H 100 10/18/19 08:00 10/18/19 10:33 10/18/19 06:00 10/18/19 10:33 10/17/19 20:00 Palliative Performance Scale: 20 - Physical Exam Constitutional: mild distress Deviation from normal: mechanically ventilated HEENT: moist MMs (mechanical ventilation, mildly adventicious) Cardiovascular: RRR Gastrointestinal: non-tender, positive bowel sounds, incontinent Genitourinary: neely catheter (clear yellow urine) Musculoskeletal: no clubbing, edema present Deviation from normal: no purposeful movement, Skin: bruising, fragile Deviation from normal: unable to assess - Problem List (1) Palliative care encounter Code(s): Z51.5 - ENCOUNTER FOR PALLIATIVE CARE Current Visit: Yes Status: Acute (2) 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 - NONTRAUMATIC INTRACEREBRAL HEMORRHAGE IN BRAIN STEM Current Visit: Yes Status: Acute - Plan/Recommendations Plan: Patient son contacted by Palliative Crae team. States his siblings are coming in from out of state. Disucssion in reltaieon to resuscitation status was introduced, he stated to Ingrid Rosado RN that he would wait for his siblings to arrive before making any decisions. *Family to come 10/19 and discuss resuscitation status *Family wantes to meet with physicians, however they are understanding of the gravity of the situation. *Revisit goals of care when all children of patient are here and they are able to collaborate *Continue with family support. Ingrid Rosado RNnuclear weapons mechanical specialist also following, please refer to her notes in the note section. [30] minutes spent on this encounter with >50% of the time in counseling and coordination of care. Thank you for this very appropriate consult.
[2019-10-18] MEDS: Labetalol HCl 100 MG/20 ML VIAL SLOW IVP PRN ×4 (14:20→23:30)
--- NOTE | 2019-10-18 15:57 | PDOC.HOSPP ---
- Subjective Encounter Date: 10/18/19 Encounter Time: 15:15 Subjective: Unable to obtain history or ROS as the patient is intubated on the ventilator - Objective Vital Signs & Weight: Vital Signs (12 hours) Temp Pulse Resp BP Pulse Ox 10/18/19 14:31 100 164/95 H 10/18/19 14:00 20 10/18/19 12:00 97.8 F 20 10/18/19 10:33 93 217/109 H 10/18/19 10:00 20 10/18/19 08:00 99.2 F 29 H 98 10/18/19 07:27 96 159/74 H 10/18/19 06:00 19 10/18/19 04:00 98.9 F 33 H Weight Admit Weight 168 lb 6.931 oz Weight 172 lb 13.478 oz Most Recent Monitor Data Heart Rate from ECG 75 NIBP 161/90 NIBP BP-Mean 113 Respiration from ECG 20 SpO2 99 I&O: 10/17/19 10/18/19 10/19/19 06:59 06:59 06:59 Intake Total 567 3495.4 Output Total 1080 2190 905 Balance -513 1305.4 -905 Result Diagrams: 10/18/19 03:20 10/18/19 03:20 Hospitalist ROS - Review of Systems ROS unobtainable: due to mental status - Medication Medications: Active Medications Generic Name Dose Route Start Last Admin Trade Name Freq PRN Reason Stop Dose Admin Nicardipine HCl 25 mg/ Sodium 260 mls @ 0 mls/hr 10/16/19 21:02 10/17/19 03: 21 Chloride IVPB 260 mls INF PRN Administration SBP > 180 or DBP > 105 Protocol Titrate Vancomycin HCl 1.25 gm/ Sodium 250 mls @ 166.667 mls/hr 10/17/19 01:00 00:48 Chloride IVPB 250 mls 0100 ALISSA Administration Vasopressin 40 unit/ 102 mls @ 0 mls/hr 10/17/19 13:30 10/17/19 13:38 Miscellaneous Medication 1 IV 102 mls each/ Sodium Chloride INF ALISSA Administration Protocol As Directed Labetalol HCl 10 mg 10/17/19 16:43 10/18/19 14:20 Normodyne SLOW IVP 10 mg Q10MIN PRN Administration TO KEEP SBP BETWEEN 140-150 Morphine Sulfate 2 mg 10/17/19 04:14 10/18/19 15:10 Morphine SLOW IVP 11/16/19 04:14 2 mg Q1H PRN Administration BREAKTHROUGH PAIN/Agitation Ondansetron HCl 4 mg 10/16/19 21:09 10/18/19 03:51 Zofran IVP 4 mg Q6H PRN Administration Nausea/Vomiting Sodium Chloride 10 ml 10/16/19 21:15 10/17/19 21:06 Normal Saline Pf FS 10 ml PRN PRN Administration RECONSTITUTION - Exam Neck: supple, no JVD Heart: RRR, no murmur, no gallops, normal peripheral pulses Respiratory: CTAB, no wheezes, no rales Gastrointestinal: soft, non-tender, non-distended, normal bowel sounds Extremities: no cyanosis, no clubbing, no edema Hosp A/P (1) 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 - NONTRAUMATIC INTRACEREBRAL HEMORRHAGE IN BRAIN STEM Status: Acute Plan: Neurology and Critical care on board Guarded prognosis shredding specialist her pontine hemorrhage and risk of locked in syndrome Comfort care has been recommended Currently, on ventilator as patient was unable to protect her airway (2) Toxic metabolic encephalopathy Code(s): G92 - TOXIC ENCEPHALOPATHY Status: Acute Plan: Related to pontine hemorrhage (3) HTN (hypertension) Code(s): I10 - ESSENTIAL (PRIMARY) HYPERTENSION Status: Chronic Qualifiers: Hypertension type: essential hypertension Qualified Code(s): I10 - Essential (primary) hypertension Plan: PRN meds - Plan Consults: Palliative Care
--- NOTE | 2019-10-18 16:14 | PDOC.FMACP ---
Advance Care Planning - Problem (1) Pontine hemorrhage Status: Acute Code(s): I61.3 - NONTRAUMATIC INTRACEREBRAL HEMORRHAGE IN BRAIN STEM (2) Toxic metabolic encephalopathy Status: Acute Code(s): G92 - TOXIC ENCEPHALOPATHY (3) HTN (hypertension) Status: Chronic Code(s): I10 - ESSENTIAL (PRIMARY) HYPERTENSION Qualifiers: Hypertension type: essential hypertension Qualified Code(s): I10 - Essential (primary) hypertension - Note Participants: surrogate decision-maker Summary: Advanced Care Planning was discussed. The diagnosis, prognosis and goals of care were discussed. DW son Lanny regarding the current condition and guarded prognosis Neurology opinion and recommendations discussed Lanny stated that the family would not want Mrs. Garcia to be left on the ventilator to suffer if there is no good chance of recovery Awaiting entire family to arrive in town which will likely be tomorrow ie at which point a family meeting can be had to discuss terminal weaning In the interim, code status discussed with Lanny In the event of cardiac arrest, ROSC is very unlikely Lanny stated that he would want Mrs. Garcia to be DNR in the event of cardiac arrest and that he would inform the rest of the family Time Spent (mins): 20
[2019-10-18] MEDS ORDERED: Sodium Chloride 0.9% 1,000 ML IV SCH (17:30)
[2019-10-18] MEDS ORDERED: Sodium Chloride 0.9% 500 ML IV SCH (17:30)
[2019-10-19] MEDS: Labetalol HCl 100 MG/20 ML VIAL SLOW IVP PRN ×8 (00:11→23:39)
[2019-10-19 00:31] LABS: Vancomycin, Trough 8.7 ug/mL
[2019-10-19] MEDS: Vancomycin HCl 1.25 GM in Sodium Chloride 0.9% 250 ML 250 ML IVPB SCH (00:55)
[2019-10-19] MEDS: Morphine 2 MG/ML SYRINGE SLOW IVP PRN ×5 (00:56→19:02)
[2019-10-19] MEDS: Pantoprazole 40 MG VIAL IVP SCH (09:15)
--- NOTE | 2019-10-19 11:53 | PDOC.HOSPP ---
- Subjective Encounter Date: 10/19/19 Encounter Time: 11:53 Subjective: Unable to provide history or review of systems due to patient being on the ventilator - Objective Vital Signs & Weight: Vital Signs (12 hours) Temp Pulse Resp BP Pulse Ox 10/19/19 11:45 76 10/19/19 10:14 76 10/19/19 08:00 20 95 10/19/19 06:44 70 10/19/19 06:00 20 10/19/19 04:00 98.8 F 20 10/19/19 03:16 70 164/78 H 10/19/19 02:34 73 183/84 H 10/19/19 02:21 75 159/78 H 10/19/19 02:00 20 10/19/19 00:13 75 164/88 H 10/19/19 00:11 78 164/88 H 10/19/19 00:00 99.4 F 20 Weight Admit Weight 168 lb 6.931 oz Weight 160 lb 0.889 oz Most Recent Monitor Data Heart Rate from ECG 76 NIBP 159/77 NIBP BP-Mean 104 Respiration from ECG 20 SpO2 100 I&O: 10/18/19 10/19/19 10/20/19 06:59 06:59 06:59 Intake Total 3495.4 522 Output Total 2190 1485 60 Balance 1305.4 -963 -60 Result Diagrams: 10/18/19 03:20 10/18/19 03:20 Hospitalist ROS - Review of Systems ROS unobtainable: due to mental status - Medication Medications: Active Medications Generic Name Dose Route Start Last Admin Trade Name Freq PRN Reason Stop Dose Admin Nicardipine HCl 25 mg/ Sodium 260 mls @ 0 mls/hr 10/16/19 21:02 10/17/19 03: 21 Chloride IVPB 260 mls INF PRN Administration SBP > 180 or DBP > 105 Protocol Titrate Vasopressin 40 unit/ 102 mls @ 0 mls/hr 10/17/19 13:30 10/17/19 13:38 Miscellaneous Medication 1 IV 102 mls each/ Sodium Chloride INF ALISSA Administration Protocol As Directed Sodium Chloride 500 mls @ 0 mls/hr 10/18/19 17:30 10/18/19 17:47 Normal Saline 0.9% IV 500 mls .Q0M ALISSA Administration KVO Labetalol HCl 10 mg 10/17/19 16:43 10/19/19 11:45 Normodyne SLOW IVP 10 mg Q10MIN PRN Administration TO KEEP SBP BETWEEN 140-150 Morphine Sulfate 2 mg 10/17/19 04:14 10/19/19 10:04 Morphine SLOW IVP 11/16/19 04:14 2 mg Q1H PRN Administration BREAKTHROUGH PAIN/Agitation Ondansetron HCl 4 mg 10/16/19 21:09 10/18/19 03:51 Zofran IVP 4 mg Q6H PRN Administration Nausea/Vomiting Pantoprazole Sodium 40 mg 10/19/19 09:00 10/19/19 09:15 Protonix IVP 40 mg DAILY ALISSA Administration Sodium Chloride 10 ml 10/16/19 21:15 10/17/19 21:06 Normal Saline Pf FS 10 ml PRN PRN Administration RECONSTITUTION - Exam Eye: anicteric sclera ENT: moist mucosa Heart: RRR, no murmur, normal peripheral pulses Respiratory: CTAB, no wheezes, no rales Gastrointestinal: soft, non-tender, non-distended, normal bowel sounds Hosp A/P (1) 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 - NONTRAUMATIC INTRACEREBRAL HEMORRHAGE IN BRAIN STEM Status: Acute (2) Toxic metabolic encephalopathy Code(s): G92 - TOXIC ENCEPHALOPATHY Status: Acute (3) HTN (hypertension) Code(s): I10 - ESSENTIAL (PRIMARY) HYPERTENSION Status: Chronic Qualifiers: Hypertension type: essential hypertension Qualified Code(s): I10 - Essential (primary) hypertension - Plan Hosp A/P (1) Pontine hemorrhage Related to tPA given for acute CVA Neurology and Critical care on board 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
[2019-10-19] MEDS: Vancomycin HCl 750 MG in Sodium Chloride 0.9% 250 ML 250 ML IVPB SCH (14:46)
--- NOTE | 2019-10-19 16:36 | PRG ---
DATE OF SERVICE: 10/19/2019 OBJECTIVE: VITAL SIGNS: Ms. Garcia's heart rate is 73, respiratory rates in the teens, blood pressure 139/72. LUNGS: Remarkable for coarse equal breath sounds. HEART: Regular rhythm. ABDOMEN: Soft. EXTREMITIES: Without asymmetry or edema. LABORATORY DATA: White count yesterday was 12.2, hemoglobin 10.4, platelets 254. Sodium 135, potassium 3.6, chloride 105, bicarb 21, BUN 20, creatinine 0.8. There is no blood gas for the last couple of days. IMPRESSION: Respiratory failure associated with a cerebrovascular accident. She is still not following commands. Given that she had hemorrhage into her omayra, chance for functional recovery is pretty small. We will order a lab in the morning. Job ID: [id number]
[2019-10-20] MEDS: Labetalol HCl 100 MG/20 ML VIAL SLOW IVP PRN ×3 (01:06→03:07)
[2019-10-20] MEDS: Vancomycin HCl 750 MG in Sodium Chloride 0.9% 250 ML 250 ML IVPB SCH (01:10)
[2019-10-20 03:08] VITALS: BP 170/80
[2019-10-20] MEDS: Morphine 2 MG/ML SYRINGE SLOW IVP PRN ×4 (03:10→13:40)
[2019-10-20 04:27] LABS: Hemoglobin 10.4 g/dL (12.0-16.0); Hypochromia SLIGHT = 6-15 cells (100X) (0-5/hpf); Lymphocytes 14 % (21-51); MDiff Complete? YES; Mean Corpuscular HGB CONC 33.1 g/dL (32.0-36.0); Mean Corpuscular Volume 90.6 fL (78.0-98.0); Monocytes 1 % (0-10); Neutrophil 85 % (42-75); Platelet Count 323 thou/uL (130-400); Platelet Morphology Comment Appears Adequate; RBC Distribution Width 14.3 % (11.5-14.5); Red Blood Cell (RBC) Count 3.47 mill/uL (4.20-5.40); White Blood Cell (WBC) Count 8.5 thou/uL (4.8-10.8)
[2019-10-20 04:40] LABS: Anion Gap 13 mmol/L (10-20); BUN (Urea Nitrogen) 20 mg/dL (9.8-20.1); Calc. Creatinine Clearance 69 mL/min (70-130); Calcium 8.8 mg/dL (7.8-10.44); Carbon Dioxide 24 mmol/L (23-31); Chloride 103 mmol/L (98-107); Estimated GFR-MDRD 67; Glucose 84 mg/dL (83-110); Potassium 3.4 mmol/L (3.5-5.1); Sodium 137 mmol/L (136-145)
[2019-10-20 05:47] VITALS: BMI 24.5
[2019-10-20] MEDS ORDERED: Acetaminophen 650 MG Suppository PR PRN (07:50)
[2019-10-20] MEDS ORDERED: Acetaminophen 325 MG TAB PO PRN (07:50)
[2019-10-20] MEDS: Sodium Chloride 0.9% (PF) 10 ML VIAL FS PRN (08:13)
[2019-10-20] MEDS: Pantoprazole 40 MG VIAL IVP SCH (08:13)
[2019-10-20 08:42] VITALS: TEMP 102.9
[2019-10-20] MEDS ORDERED: Morphine 4 MG/ML VIAL SLOW IVP PRN (09:10)
[2019-10-20] MEDS ORDERED: Lorazepam 2 MG/ML VIAL SLOW IVP PRN (09:10)
--- NOTE | 2019-10-20 09:32 | PRG ---
DATE OF SERVICE: 10/20/2019 Thirty five minutes critical care time. SUBJECTIVE: The patient remains intubated on mechanical ventilation. Her daughter was at the bedside as I saw the patient. OBJECTIVE: VITAL SIGNS: On exam, temperature is 102.9, pulse 79, blood pressure 139/77, O2 saturations 99%. Intake 786, output 1135. NEUROLOGIC: She will withdraw to pain. Does not follow commands. She does have some spontaneous respirations. HEENT: Unremarkable. NECK: No JVD. LUNGS: Coarse breath sounds. CARDIOVASCULAR: S1 and S2, regular. ABDOMEN: Soft. EXTREMITIES: No edema. LABORATORY DATA: White blood cell count 8.5, hematocrit 31.5, and platelet count 323. Sodium 137, potassium 3.4, chloride 103, CO2 of 24, BUN 20, creatinine 0.8, glucose 84. ASSESSMENT: 1. Status post brainstem stroke. 2. Acute respiratory failure, requiring mechanical ventilation. 3. Fever. PLAN: The daughter tells me that the family will be withdrawing care. Based on that, I think we can back off on many of her medications and stop her lab draws. We will be available to facilitate the family's needs. Job ID: [id number]
--- NOTE | 2019-10-20 13:39 | PDOC.HOSPP ---
- Subjective Encounter Date: 10/20/19 Encounter Time: 11:00 non-verbal (intubated on ventilator) - Objective Vital Signs & Weight: Vital Signs (12 hours) Temp Pulse Resp BP Pulse Ox 10/20/19 10:30 79 10/20/19 08:00 20 10/20/19 07:45 97 10/20/19 07:04 82 10/20/19 07:00 102.9 F H 10/20/19 06:00 20 10/20/19 04:00 98.4 F 20 10/20/19 03:07 83 170/80 H 10/20/19 02:19 81 169/74 H 10/20/19 02:13 81 169/74 H 10/20/19 02:00 20 Weight Admit Weight 168 lb 6.931 oz Weight 161 lb 6.4 oz Most Recent Monitor Data Heart Rate from ECG 79 NIBP 139/77 NIBP BP-Mean 97 Respiration from ECG 20 SpO2 99 I&O: 10/19/19 10/20/19 10/21/19 06:59 06:59 06:59 Intake Total 522 786 Output Total 1485 1135 65 [facility] -963 -349 -65 Result Diagrams: 10/20/19 03:42 10/20/19 03:42 Hospitalist ROS - Review of Systems ROS unobtainable: due to mental status - Medication Medications: Active Medications Generic Name Dose Route Start Last Admin Trade Name Freq PRN Reason Stop Dose Admin Acetaminophen 650 mg 10/20/19 07:50 10/20/19 08:12 Tylenol PO 650 mg Q6H PRN Administration Fever > 101 Sodium Chloride 500 mls @ 0 mls/hr 10/18/19 17:30 10/18/19 17:47 Normal Saline 0.9% IV 500 mls .Q0M ALISSA Administration KVO Vancomycin HCl 750 mg/ Sodium 250 mls @ 250 mls/hr 10/19/19 13:00 10/20/19 01 :10 Chloride IVPB 250 mls 0100,1300 ALISSA Administration Labetalol HCl 10 mg 10/17/19 16:43 10/20/19 03:07 Normodyne SLOW IVP 10 mg Q10MIN PRN Administration TO KEEP SBP BETWEEN 140-150 Morphine Sulfate 2 mg 10/17/19 04:14 10/20/19 12:53 Morphine SLOW IVP 11/16/19 04:14 2 mg Q1H PRN Administration BREAKTHROUGH PAIN/Agitation Morphine Sulfate 4 mg 10/20/19 09:10 10/20/19 13:06 Morphine SLOW IVP 4 mg Q15MIN PRN Administration dyspnea Ondansetron HCl 4 mg 10/16/19 21:09 10/18/19 03:51 Zofran IVP 4 mg Q6H PRN Administration Nausea/Vomiting Sodium Chloride 10 ml 10/16/19 21:15 10/20/19 08:13 Normal Saline Pf FS 10 ml PRN PRN Administration RECONSTITUTION - Exam General Appearance: ill appearing (intubated on ventilator) Heart: RRR, no murmur, normal peripheral pulses Respiratory: CTAB, no wheezes Gastrointestinal: soft, non-tender, non-distended, normal bowel sounds Hosp A/P (1) 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 - NONTRAUMATIC INTRACEREBRAL HEMORRHAGE IN BRAIN STEM Status: Acute (2) Toxic metabolic encephalopathy Code(s): G92 - TOXIC ENCEPHALOPATHY Status: Acute (3) HTN (hypertension) Code(s): I10 - ESSENTIAL (PRIMARY) HYPERTENSION Status: Chronic Qualifiers: Hypertension type: essential hypertension Qualified Code(s): I10 - Essential (primary) hypertension - Plan Hosp A/P (1) Pontine hemorrhage Related to tPA which was given for acute CVA Neurology and Critical care on board 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 DW family at bedside
--- NOTE | 2019-10-21 10:21 | DIS ---
DATE OF ADMISSION: 10/16/2019 DATE OF : 10/20/2019. TIME OF : 1:36 p.m. ADMISSION DIAGNOSES: 1. Acute encephalopathy of unknown etiology. 2. Hypertensive urgency. 3. Acute cerebrovascular accident, status post tPA. 4. History of chronic pain syndrome. 5. Dyslipidemia. 6. Chronic kidney disease stage 3. DIAGNOSES ACTIVE AT THE TIME OF : 1. Acute pontine hemorrhage related to tPA which was given for acute cerebrovascular accident. 2. Acute metabolic encephalopathy related to pontine hemorrhage. 3. Essential hypertension. 4. Chronic pain syndrome. CONSULTATIONS: 1. Dr. Brito from Neurology. 2. Palliative Care. 3. Pulmonary and Critical Care Medicine, Dr. Guicho Ferguson. PERTINENT IMAGING AND PROCEDURES: The patient underwent intubation on mechanical ventilation. The patient underwent MRI of the brain on 10/17/2019. This revealed findings most consistent with hyperacute expansile hemorrhage of the brain stem. The patient underwent CT scan of the head on presentation on 10/16/2019. This did not reveal any CT evidence of intracranial process. The patient underwent CT angiogram of the head and neck on 10/16/2019. No evidence of hemodynamically significant stenosis. HOSPITAL COURSE: The patient was a 74-year-old female with past medical history of hypertension, chronic pain syndrome, who was brought to the emergency department by family after the patient had sudden change in her mentation and new onset weakness. The patient also fell face forward to the ground. The patient was brought to the emergency department. In the emergency department, the patient was felt to have an acute stroke with an elevated NIH stroke scale. Hence after discussion with the family, the patient was given intravenous tPA after her blood pressure was adequately controlled with Cardene. The patient was admitted to the ICU. The patient developed acute encephalopathy during the stay in the hospital. Hence, an MRI of the brain was performed. This revealed acute hemorrhage of the brain stem consistent with pontine hemorrhage. Pulmonary and Critical Care Medicine was consulted as the patient was intubated in the emergency department as the patient was unable to protect airway after the tPA with persistent nausea and vomiting. The patient was continued on the mechanical ventilator. Neurology was consulted. After evaluation of the patient's MRI and her status, the patient was felt to have guarded prognosis given her brain stem hemorrhage. Withdrawal of care was recommended. The patient was also seen in consultation by Palliative Care. After discussion with the family, the patient's family decided to pursue comfort measures and withdrawal of care. However, the patient's family wanted to wait until the day after Thanksgiving before terminal extubation. Hence, the patient was extubated at 12:30 p.m. on 10/20/2019. The patient was pronounced at 1:36 p.m. on 10/20/2019. Cause of was brain stem hemorrhage related to tPA that was given for an acute CVA. Total time taken for discharge - 45 minutes. Job ID: [id number] [id number]
== END 2019-10-20 13:36 | disposition expired | DRG 61 ==
LOC: ERS 19:25 → CCU 20:18
PROVIDERS: ADMIT Internal Medicine; ATTEND Internal Medicine
PROC: 3E03317 Introduction of Other Thrombolytic into Peripheral Vein, Percutaneous Approach (ICD-10-PCS; principal; 2019-10-16)
PROC: 5A1945Z Respiratory Ventilation, 24-96 Consecutive Hours (ICD-10-PCS; 2019-10-17)
PROC: 0BH18EZ Insertion of Endotracheal Airway into Trachea, Via Natural or Artificial Opening Endoscopic (ICD-10-PCS; 2019-10-17)
DX: I63.9 Cerebral infarction, unspecified (principal); I61.3 Nontraumatic intracerebral hemorrhage in brain stem; J96.00 Acute respiratory failure, unspecified whether with hypoxia or hypercapnia; G92 Toxic encephalopathy; R40.20 Unspecified coma; Z66 Do not resuscitate; Z51.5 Encounter for palliative care; G89.4 Chronic pain syndrome; N18.3 Chronic kidney disease, stage 3 (moderate); E78.5 Hyperlipidemia, unspecified; I16.0 Hypertensive urgency; J44.9 Chronic obstructive pulmonary disease, unspecified; F32.9 Major depressive disorder, single episode, unspecified; F41.9 Anxiety disorder, unspecified; I12.9 Hypertensive chronic kidney disease with stage 1 through stage 4 chronic kidney disease, or unspecified chronic kidney disease; G43.909 Migraine, unspecified, not intractable, without status migrainosus; M79.7 Fibromyalgia; R29.726 NIHSS score 26; R40.2232 Coma scale, best verbal response, inappropriate words, at arrival to emergency department; R40.2352 Coma scale, best motor response, localizes pain, at arrival to emergency department; R40.2132 Coma scale, eyes open, to sound, at arrival to emergency department; T45.615A Adverse effect of thrombolytic drugs, initial encounter; R50.9 Fever, unspecified; Z79.899 Other long term (current) drug therapy; Z90.710 Acquired absence of both cervix and uterus; Z90.49 Acquired absence of other specified parts of digestive tract; Z86.73 Personal history of transient ischemic attack (TIA), and cerebral infarction without residual deficits; Z88.6 Allergy status to analgesic agent; Z88.1 Allergy status to other antibiotic agents; Z88.0 Allergy status to penicillin; Z88.2 Allergy status to sulfonamides; Z91.81 History of falling
CPT/HCPCS: 36415; 36416; 70450; 70496; 70498; 70551; 70553; 71045; 80048; 80053; 80061; 80202; 80306; 82550; 82805; 84484; 85007; 85025; 85027; 85610; 85730; 86850; 86900; 86901; 93005; 94002; 94003; A4218; C9113; J0360; J1956; J2060; J2250; J2270; J2405; J2704; J2997; J3370; J3490; J7050; Q9967